=== PATIENT | male | born 1950 | race Caucasian/White ===

== ENCOUNTER → 2018-02-18 | Outpatient (CLI) | payer OTHER ==
[~2018-02-18] MED LIST: AMLO2.5T2 PO; AMT24 PO; ASCA500 PO; BACLOFEN PO; CETI10TA84 PO; CHOL4POW6 PO; CLTP PO; CRAN1CAP14 PO; CYM/60 PO; DOCUENE; DONE10TA12 PO; DOXY100C76 PO; DTR5 PO; FURO20TA PO; GABA-113 PO; LIDO5DIS10 TOP; METO25TA56 PO; NYST100098 TOP; OXYC-59 PO; OXYC1TAB3 PO; PRAV20TA PO; WARF4TAB PO
--- NOTE | 2018-02-18 11:39 | DIAGNOSTIC IMAGING REPORT ---
(RENAL)RETROPERITON COMP CLINICAL HISTORY: 67 years-old Male presenting with N28.89 Renal mass. TECHNIQUE: Real-time grayscale and limited color Doppler ultrasound imaging of the kidneys and bladder was performed. COMPARISON: 07/11/[address] from 01/26/2014. FINDINGS: Right kidney: Normal echogenicity of renal parenchyma. Right kidney measures 12.1 cm. No hydronephrosis. Multiple simple appearing renal cysts measuring up to 3 cm. Left kidney: Normal echogenicity of renal parenchyma allowing for poor visualization of the lower pole. Left kidney measures 12.2 cm. No hydronephrosis. Multiple simple appearing renal cysts measuring up to 2.1 cm. Poorly visualized suspected cyst at the lower pole. Bladder: A suprapubic catheter decompresses the urinary bladder. Other: None. IMPRESSION: 1. Multiple simple appearing renal cysts. No hydronephrosis. Poor visualization of the lower pole left kidney, which likely also demonstrates a renal cyst. No sonographic evidence of a solid renal mass. Electronically signed by: Loyd Porter M.D. 02/18/2018 11:38 AM Dictated Date/Time: 02/18/2018 11:36 AM
== END | disposition home or self-care (01) ==
LOC: C.ULTR 10:49
PROVIDERS: ATTEND Urology
DX: N28.89 Other specified disorders of kidney and ureter (principal); N28.1 Cyst of kidney, acquired

== ENCOUNTER 2018-07-07 12:06 | Emergency (ER) | payer OTHER ==
[~2018-07-07] VITALS: Ht 172.7 cm; Wt 86.4 kg
[2018-07-07 12:06] VITALS: TEMP 36.9; Ht 172.7 cm; Wt 86.4 kg
[~2018-07-07 12:06] MED LIST changes: -OXYC-59 PO; +OXYC-90 PO; +OXYC10TA2 PO; -OXYC1TAB3 PO
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
[2018-07-07 13:46] LABS: BASO % 0.2 %; BASO ABS # 0.03 K/uL (0-0.2); EOS % 4.3 %; EOS ABS # 0.71 K/uL (0-0.5); HEMATOCRIT 50.3 % (42-52); HEMOGLOBIN 17.4 g/dL (14.0-18.0); IG# 0.05 K/uL (0.00-0.02); LYMPH % 11.6 %; LYMPH ABS # 1.91 K/uL (1.2-3.4); MEAN CELL VOLUME 86.1 fL (80-100); MEAN CORPUSCULAR HEMOGLOBIN 29.8 pg (25-34); MEAN CORPUSCULAR HGB CONC 34.6 g/dl (32-36); MEAN PLATELET VOLUME 9.4 fL (7.4-10.4); MONO % 11.6 %; MONO ABS # 1.91 K/uL (0.11-0.59); PLATELET COUNT 325 K/uL (130-400); RED CELL DISTRIBUTION WIDTH CV 16.1 % (11.5-14.5); RED CELL DISTRIBUTION WIDTH SD 51.1 fL (36.4-46.3); WHITE BLOOD COUNT 16.41 K/uL (4.8-10.8)
[2018-07-07 14:03] LABS: INR 3.1 (0.9-1.1)
[2018-07-07 14:06] LABS: PTT PATIENT 57.6 SECONDS (21.0-31.0)
[2018-07-07 14:07] LABS: ALBUMIN 2.7 gm/dl (3.4-5.0); CALCIUM 9.4 mg/dl (8.5-10.1); CREATININE 0.54 mg/dl (0.60-1.40); POTASSIUM 3.8 mmol/L (3.5-5.1)
--- NOTE | 2018-07-07 14:21 | DIAGNOSTIC IMAGING REPORT ---
CT OF THE ABDOMEN AND PELVIS WITHOUT CONTRAST, STONE PROTOCOL CLINICAL HISTORY: Fall. Evaluate for bladder trauma. COMPARISON STUDY: CT of the abdomen and pelvis January 26, 2014 and renal ultrasound February 18, 2018. TECHNIQUE: Helical axial images of the abdomen and pelvis were obtained without IV or oral contrast according to renal stone protocol. A dose lowering technique was utilized adhering to the principles of ALARA. FINDINGS: Unenhanced images of the liver, spleen, adrenal glands and pancreas are unremarkable with exception of left adrenal nodularity which is unchanged and CT of January 26, 2014. This is benign. There is no biliary ductal dilatation status post cholecystectomy. There is no peripancreatic infiltration. A few water attenuation renal lesions are suboptimally assessed on this unenhanced exam but favor cysts. There is moderate bilateral hydronephrosis and mild dilatation of both ureters. The bladder is mildly distended. Suprapubic catheter is in place. Balloon is likely located within the prostatic portion of the urethra. The catheter could be withdrawn 3 cm. There is mild distention of the bladder. There is mild infiltration adjacent to the bladder as well as the prostate as well as both kidneys. Chronic pelvic deformity is noted with old fractures. No acute pelvic fracture is identified. Extensive plaque of the aortoiliac system is noted. Prominent bilateral pelvic sidewall lymph nodes are unchanged in CT of January 26, 2014. No large hematoma is identified on this exam. Sensitivity for detection of urothelial lesions is diminished on this unenhanced exam. There are old thoracic and lumbar spine compression fractures. These are unchanged. Extensive muscular atrophy is noted. IMPRESSION: 1. Suprapubic catheter in place with balloon likely within the prostatic portion of the urethra. The catheter could be withdrawn 3 cm. 2. Moderate bilateral hydronephrosis and mild bilateral hydroureter which is nonspecific but may be related to bladder distention. 3. Moderate infiltration adjacent to the kidneys, bladder and prostate which could be correlated with urinalysis. Similar findings were shown on prior study and this may be chronic. A post traumatic etiology could appear similar although is considered less likely. 4. Chronic deformity of the pelvis with old fractures. No acute pelvic fracture. Electronically signed by: Truman Hester M.D. 07/07/2018 2:20 PM Dictated Date/Time: 07/07/2018 2:02 PM
[2018-07-07] MEDS ORDERED: ASCO1CAP3 PO (15:14)
[2018-07-07] MEDS ORDERED: CALC600T9 PO (15:14)
[2018-07-07] MEDS ORDERED: LIDO1PAD2 TOP (15:14)
[2018-07-07] MEDS ORDERED: CHOL4POW2 (15:14)
[2018-07-07] MEDS ORDERED: ACETAMINOPHEN 325 MG TAB PO STA (16:23)
[2018-07-07] MEDS ORDERED: CEFTRIAXONE SOD INJ 1 GM ADDVIAL IV STA (18:00)
[2018-07-07] MEDS ORDERED: CIPROFLOXACIN 500MG HOME PACK PO ONE (18:00)
[2018-07-07] MEDS ORDERED: CEPH500C PO (18:02)
[2018-07-07 19:49] VITALS: BP 146/95; PULSE 85; O2SAT 96
--- NOTE | 2018-07-09 12:55 | Pharmacy Progress Note ---
ED Pharmacist Culture FollowUp Date of Service: Jul 09, 2018. Patient was sent home with a prescription for Cephalexin 500mg PO TID x 7 days, which should cover the e coli growing from the patient's URINE culture.
== END 2018-07-07 19:51 | disposition home or self-care (01) ==
LOC: EDBD 12:06 → C.EDA 12:07
DX: T83.098A Other mechanical complication of other urinary catheter, initial encounter (principal); R31.9 Hematuria, unspecified; Y84.6 Urinary catheterization as the cause of abnormal reaction of the patient, or of later complication, without mention of misadventure at the time of the procedure; N39.0 Urinary tract infection, site not specified; G82.20 Paraplegia, unspecified; Z79.899 Other long term (current) drug therapy; I10 Essential (primary) hypertension; I25.10 Atherosclerotic heart disease of native coronary artery without angina pectoris; E78.5 Hyperlipidemia, unspecified; Z88.8 Allergy status to other drugs, medicaments and biological substances

== ENCOUNTER 2019-03-15 13:16 | Inpatient (IN) ==
[2019-03-15] MEDS ORDERED: VANCOMYCIN CONSULT ACTIVE PRN ×2 (18:24→18:25)
[2019-03-15] MEDS ORDERED: PIPERACILL/TAZOBAC CONSULT ACTIVE PRN (18:24)
[2019-03-15] MEDS ORDERED: PATIENT S HEIGHT NEEDED SCH (18:30)
[2019-03-15] MEDS ORDERED: PIPERACILLIN/TAZOBACTAM 3.375 GM in DEXTROSE 5% 100 ML IV ONE (18:45)
[2019-03-15] MEDS ORDERED: VANCOMYCIN HCL 1,250 MG in SODIUM CHLORIDE 0.9% 250 ML IV ONE (18:45)
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
[2019-03-15] MEDS ORDERED: SODIUM CHLORIDE 0.9% 1000ML 1,000 ML IV SCH (19:15)
[2019-03-15 20:16] LABS: INR 1.4 (0.9-1.1); Partial Thromboplastin Ratio 0.9; Partial Thromboplastin Time 24.9 Seconds (21.0-31.0)
[2019-03-15] MEDS: ENOXAPARIN 80 MG/0.8 ML SYR SQ SCH (20:17)
[2019-03-15] MEDS: WARFARIN SOD 4 MG TAB PO SCH (20:18)
[2019-03-15] MEDS: LUBIPROSTONE 8 MCG CAP PO SCH (20:19)
[2019-03-15] MEDS: BACLOFEN 20 MG TAB PO SCH (20:21)
[2019-03-15] MEDS: CALCIUM 600MG + VIT D 400 IU TAB PO SCH (20:21)
[2019-03-15 20:22] LABS: Albumin Level 2.7 gm/dl (3.4-5.0); BUN Creatinine Ratio 36.1 (10-20); C Reactive Protein 15.3 mg/dl (0-0.29); Calcium 8.9 mg/dl (8.5-10.1); Creatinine Clr Calc Pharmacy 167.7 ml/min; Est GFR (Non-African American) 117.4; Potassium 3.2 mmol/L (3.5-5.1)
[2019-03-15] MEDS: GABAPENTIN 300 MG CAP PO SCH (20:22)
[2019-03-15 20:25] LABS: Albumin Globulin Ratio 0.6 (0.9-2); Bilirubin,Total 0.7 mg/dl (0.2-1); Globulin 4.6 gm/dl (2.5-4.0); Total Protein 7.3 gm/dl (6.4-8.2)
[2019-03-15] MEDS ORDERED: POTASSIUM CHLORIDE 20 MEQ TABCR PO ONE (20:33)
[2019-03-15] MEDS: METOPROLOL TARTRATE 25 MG TAB PO SCH (20:35)
[2019-03-15 20:38] LABS: Basophils # (auto) 0.02 K/uL (0-0.2); Basophils % (auto) 0.1 %; Eosinophils # (auto) 0.45 K/uL (0-0.5); Eosinophils % (auto) 3.1 %; Hematocrit (blood only) 43.9 % (42-52); Hemoglobin 14.9 g/dL (14.0-18.0); Immature Granulocytes # (auto) 0.06 K/uL (0.00-0.02); Immature Granulocytes % (auto) 0.4 %; Lymphocytes # (auto) 1.37 K/uL (1.2-3.4); Lymphocytes % (auto) 9.5 %; Mean Corpuscular Volume 84.6 fL (80-100); Mean Platelet Volume 9.1 fL (7.4-10.4); Monocytes # (auto) 1.66 K/uL (0.11-0.59); Monocytes % (auto) 11.6 %; Neutrophils # (auto) 10.81 K/uL (1.4-6.5); Neutrophils % (auto) 75.3 %; Platelet Count 326 K/uL (130-400); RDW Coefficient of Variation 16.2 % (11.5-14.5); RDW Standard Deviation 50.2 fL (36.4-46.3); Red Blood Count 5.19 M/uL (4.7-6.1); White Blood Count 14.37 K/uL (4.8-10.8)
[2019-03-15 20:40] LABS: Mean Corpuscular Hgb Conc 33.9 g/dL (32-36)
--- NOTE | 2019-03-15 20:42 | Pharmacy Report ---
Pharmacy Abx Dose Short Note - Date of Service March 15, 2019 - Assessment & Plan Assessment 68 year old M ORDERED VANC/Zosyn for treatment of SSTI * Pt previously receiving Vanc/Zosyn or Vanc/Cubicin at [facility] &/or [facility]. Labs from [facility] 03/15/19: INR=1.17 (last dose enox 80mg sq q12h was 03/14/19 2256) Scr 0.5 * Pt received last dose of Vanc _?_mg IV 03/15/19 0500ish * Vanc was d/c and switched to dapto 6mg/kg (484mg) IV q24 hrs with 1st dose 03/15 @ 1241. * Zosyn 4.5g IV q 6 hours with last dose at [facility] 1345 Plan Vancomycin: discussed plan of care with Faith. Since dapto on board x 24 hours, will plan to restart Vanc 03/16 late morning. Piperacillin/Tazobactam Extended Infusion: 3.375g IV bolus, then 4.5g IV q 8 hrs for est CrCL > 20mL/min (4-6 hrs after load). Pharmacy will continue to follow and will adjust dose/frequency as necessary. Thank you.
[2019-03-15] MEDS: OXYCODONE HCL IR 5 MG TAB (IMMEDIATE RELEASE) PO PRN (21:55)
[2019-03-15 23:23] LABS: Appearance Urine Cloudy (Clear); Bacteria Urine Automated Negative (Negative); Bilirubin Urine Negative (Negative); Blood Urine 3+ (Negative); Color Urine Dark Yellow; Epithelial Cell Urine Auto 0-5 /lpf (0-5); Glucose Urine UA Negative (Negative); Ketones Urine Trace (Negative); Leukocyte Esterase Urine 2+ (Negative); Nitrite Urine Negative (Negative); Protein Urine Trace (Negative); Specific Gravity Urine 1.031 (1.000-1.030); Urobilinogen Urine Negative (Negative); WBC Urine Automated >30 /hpf (0-5)
[2019-03-15 23:35] LABS: Cast Urine Automated 0 /lpf (0-5)
[2019-03-15] MEDS: PIPERACILLIN/TAZOBACTAM 4.5 GM in DEXTROSE 5% 100 ML IV SCH (23:49)
[2019-03-16] MEDS: ACETAMINOPHEN 325 MG TAB PO PRN ×2 (01:40→18:09)
[2019-03-16] MEDS: OXYCODONE HCL IR 5 MG TAB (IMMEDIATE RELEASE) PO PRN ×4 (03:30→22:02)
[2019-03-16 05:46] LABS: Basophils # (auto) 0.01 K/uL (0-0.2); Basophils % (auto) 0.1 %; Eosinophils # (auto) 0.62 K/uL (0-0.5); Eosinophils % (auto) 4.5 %; Hematocrit (blood only) 37.9 % (42-52); Hemoglobin 12.8 g/dL (14.0-18.0); Immature Granulocytes # (auto) 0.04 K/uL (0.00-0.02); Immature Granulocytes % (auto) 0.3 %; Lymphocytes # (auto) 1.65 K/uL (1.2-3.4); Mean Corpuscular Hgb Conc 33.8 g/dL (32-36); Mean Corpuscular Volume 82.8 fL (80-100); Mean Platelet Volume 8.8 fL (7.4-10.4); Monocytes # (auto) 1.52 K/uL (0.11-0.59); Monocytes % (auto) 11.1 %; Neutrophils # (auto) 9.91 K/uL (1.4-6.5); Platelet Count 314 K/uL (130-400); RDW Standard Deviation 48.5 fL (36.4-46.3); Red Blood Count 4.58 M/uL (4.7-6.1); White Blood Count 13.75 K/uL (4.8-10.8)
[2019-03-16 05:56] LABS: INR 1.8 (0.9-1.1); Prothrombin Time 17.7 Seconds (9.0-12.0)
[2019-03-16 06:14] LABS: BUN Creatinine Ratio 45.4 (10-20); Blood Urea Nitrogen 13 mg/dl (7-18); Calcium 8.4 mg/dl (8.5-10.1); Carbon Dioxide 26 mmol/L (21-32); Chloride 106 mmol/L (98-107); Creatinine Clr Calc Pharmacy 254.4 ml/min; Est GFR (African American) > 150.0; Est GFR (Non-African American) 139.3; Glucose 127 mg/dl (70-99); Potassium 3.3 mmol/L (3.5-5.1); Sodium 134 mmol/L (136-145)
[2019-03-16] MEDS: ENOXAPARIN 80 MG/0.8 ML SYR SQ SCH ×2 (06:14→19:57)
--- NOTE | 2019-03-16 07:26 | Infectious Disease Consult ---
Date of Consultation March 16, 2019 Assessment & Plan (1) Wound infection: continue abx for now, await results from cultures at [facility] as well at [facility]. will follow. History of Present Illness Attending Physician: April Wright pt transferred from [facility] due to infected wounds. Per chart was being treated at local wound center. 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 pt is lethargic, does not provide history, obtained from chart. wound and blood cultures reportedly obtained at [facility] prior to transfer. repeat wound culture pending. Placed on Vanco and zosyn in ER, tolerating well. afebrile. wbc 16. Had MRI at [facility] with ? osteomyelitis. Allergies Allergy/AdvReac Type Severity Reaction Status Date / Time JAYMIE Inhibitors Allergy Severe angioedema Verified 07/07/18 15:03 Bactrim Allergy Severe URTICARIA Verified 07/07/18 15:03 WITH ANGIOEDEMA TONGUE, LIPS Home Medications Home Medications Medication Instructions Recorded Confirmed Type Lactobacillus acidoph-L.bulgar 2 tab PO DAILY 03/15/19 03/15/19 History [Lactinex] amlodipine 2.5 mg PO DAILY 03/15/19 03/15/19 History ascorbic acid (vitamin C) [Vitamin 500 mg PO DAILY 03/15/19 03/15/19 History C] baclofen 20 mg PO TID 03/15/19 03/15/19 History calcium carbonate-vitamin D3 3 cap PO DAILY 03/15/19 03/15/19 History [Calcium 600 + D(3)] cholestyramine (with sugar) 4 g PO BID PRN 03/15/19 03/15/19 History cranberry conc-ascorbic acid 2 cap PO DAILY 03/15/19 03/15/19 History [Cranberry Plus Vitamin C] doxycycline hyclate 100 mg PO DAILY 03/15/19 03/15/19 History duloxetine 60 mg PO DAILY 03/15/19 03/15/19 History enoxaparin [Lovenox] 80 mg SUBCUT Q12H 03/15/19 03/15/19 History furosemide [Lasix] 20 mg PO DAILY 03/15/19 03/15/19 History gabapentin 2 cap PO QID 03/15/19 03/15/19 History lidocaine [Lidoderm] 1 patch TOPICAL DAILY 03/15/19 03/15/19 History lubiprostone [Amitiza] 24 mcg PO BID 03/15/19 03/15/19 History methenamine mandelate 1 g PO DAILY 03/15/19 03/15/19 History metoprolol tartrate 12.5 mg PO BID 03/15/19 03/15/19 History nystatin 1 applic TOPICAL TID 03/15/19 03/15/19 History oxycodone 10 mg PO QID PRN 03/15/19 03/15/19 History pravastatin 20 mg PO DAILY 03/15/19 03/15/19 History sennosides-docusate sodium [Senna 2 tab PO DAILY 03/15/19 03/15/19 History with Docusate Sodium] warfarin 1 tab PO UD 03/15/19 03/15/19 History Patient History Medical History Subdural hemorrhage (Resolved Unknown) Delirium (Resolved Unknown) Syringomyelia (Chronic Unknown) Suprapubic cystostomy (Chronic Unknown) Paraplegia (Chronic Unknown) "T8 " On 04/02/12 12:42 Rene Clark wrote "T8 " On 04/02/12 12:42 Rene Clark wrote "T8 " Recurrent urinary tract infection (Chronic Unknown) Renal mass (Chronic Unknown) Dyslipidemia (Chronic Unknown) Clostridium difficile infection (Resolved 04/04/13) "2008 " On 04/02/12 12:42 Rene Clark wrote "2008 " On 04/02/12 12:42 Rene Clark wrote "2008 " On 04/02/12 12:39 Rene Clark wrote "2008 " Social History Preferred Language: [place] Islander Communication Ability: Effective Beliefs That Will Affect Care: None Current Living Situation: Spouse Feels Safe at Home: Yes Safety Concerns: Feels Safe At This Time Smoking Status: Current every day smoker Tobacco Type: pipe Do You Dip or Chew Tobacco: No Smoking End Date: 6 months ago. Second Hand Exposure: No Tobacco Cessation Education Requested by Patient: No Hx Alcohol Use: No Hx Substance Use: No Review of Systems Review of Systems: Unobtainable due to cognitive status Physical Exam Constitutional: + thin and + altered mental status Eyes: unable to examine, does not open eyes on my exam ENMT: external ear and nose normal, oropharynx normal Neck: normal visual inspection Respiratory: normal respiratory effort, lungs clear to auscultation Auscultation: + diminished lung sounds Cardiovascular: RRR, no murmur, no edema Gastrointestinal (Abdomen): Inspection/Auscultation: abdomen normal to inspection Musculoskeletal: Head/Neck/Chest: normocephalic Skin: no rashes, warm and dry multiple lower extremity wounds, dressing intact, no surrounding erythema warmth right lateral knee wound Psychiatric: lethargic, non verbal on my exam Results & Data Vital Signs (Past 12 Hours) Vital Signs Temp Pulse Pulse Resp BP Pulse Ox 03/16/19 07:02 36.6 C 61 16 138/74 95 03/15/19 23:28 36.7 C 76 18 123/67 95 03/15/19 20:33 77 139/70 97 03/15/19 20:16 37.0 C 03/15/19 19:43 36.8 C Laboratory Results Microbiology 03/15/19 22:25 Leg,Right Gram Stain - Final
[2019-03-16] MEDS: PIPERACILLIN/TAZOBACTAM 4.5 GM in DEXTROSE 5% 100 ML IV SCH ×3 (09:01→23:37)
[2019-03-16] MEDS: ASCORBIC ACID 500 MG TAB PO SCH (09:03)
[2019-03-16] MEDS: METOPROLOL TARTRATE 25 MG TAB PO SCH ×2 (09:03→20:08)
[2019-03-16] MEDS: AMLODIPINE BESYLATE 5 MG TAB PO SCH (09:04)
[2019-03-16] MEDS: DOCUSATE SODIUM/SENNA 50/8.6MG TAB PO SCH (09:05)
[2019-03-16] MEDS: LUBIPROSTONE 8 MCG CAP PO SCH ×2 (09:07→20:11)
[2019-03-16] MEDS: GABAPENTIN 300 MG CAP PO SCH ×4 (09:07→20:08)
[2019-03-16] MEDS: PRAVASTATIN SOD 20 MG TAB PO SCH (09:08)
[2019-03-16] MEDS: LACTOBACILLUS ACIDOPHILUS (FLORANEX) TAB PO SCH (09:08)
[2019-03-16] MEDS: BACLOFEN 20 MG TAB PO SCH ×3 (09:08→20:12)
[2019-03-16] MEDS: DULOXETINE HCL 60 MG CAP PO SCH (09:08)
[2019-03-16] MEDS: LIDOCAINE 5% 1 PATCH TD SCH (09:09)
[2019-03-16] MEDS: CALCIUM 600MG + VIT D 400 IU TAB PO SCH ×3 (09:10→20:11)
[2019-03-16] MEDS ORDERED: VANCOMYCIN HCL 1,750 MG in SODIUM CHLORIDE 0.9% 500 ML IV ONE (10:00)
--- NOTE | 2019-03-16 10:32 | Hospitalist Progress Note ---
Date of Service March 16, 2019 Assessment & Plan (1) Wound infection: Patient is a 68 y/o paraplegic x 40 years with chronic right knee, lateral aspect wounds, right buttock wound for which she follows up with wound care clinic on a weekly basis. Recently he was at [facility] post teeth extraction for Lovenox/Coumadin bridging. Went for his routine follow-up visit at wound care clinic last Sunday where he was noted to have purulent drainage/foul- smelling wounds and was sent to ED, [facility] hopper. Transferred to our hospital for ID opinion. RIGHT KNEE (LATERAL SIDE) WOUND INFECTION - RIGHT BUTTOCK PRESSURE ULCER WITH CELLULITIS - SUPRA PUBIC SITE CELLULITIS involving groin/penis- R/o Osteomyelitis -[facility] Work up- 03/15- WBC 16k, ESR,, CRP Elevated (Unable to find results), Creatinine- 0.5, INR 1.17, Blood cx x 2- preliminary negative, Wound cx b/l collected. MRI w/o contrast- Unable to r/o OM, Soft tissue infection along outer margin of knee with extension to involve adjacent with soft tissues around bony elements of knee, chronic unhealed fracture at the distal femur, chronic ACL tear, maceration of menisci, knee degenerative changes, x-patrice healed chronic distal femur fracture -Continue with IV Vancomycin, Zosyn- Day 3 (Was started on antibiotics on 03/14/19 at [facility]) -Wound care ordered (Follows up at wound care clinic). -ID consulted. Appreciate inputs. D/w ID -F/up Blood cx, Wound cx from [facility] . Follow up wound cx, blood cultures here. UTI As per [facility] records Chronic supra pubic catheter + for neurogenic bladder Surrounding area- Cellulitis + with some drainage -Will order UA, Urine cx here -On Antibiotics as above -Need to change supra pubic catheter- Consult urology to change catheter HX OF DVT/IMMOBILIZATION -Was at [facility] prior to admission for lovenox/coumadin bridging post 4 teeth extraction procedure. -Continue with lovenox/coumadin bridging -INR monitoring, Coumadin to be continued HX OF PARAPLEGIA HX OF NEUROGENIC BLADDER -Chronic suprapubic catheter -Bed ridden x 4 decades HTN Stable Continue with home meds- lisinopril. Hold lasix COPD with no exacerbation -Nebs PRN HX OF SYRINGOMYELIACTOMY HX OF PRIOR MRSA/VRE HX OF CAD -Continue with home meds DVT PROPHYLAXIS Lovenox/Coumadin bridging FULL CODE as per DISPOSITION Medical mx in progress Updated by bedside. Answered all her questions Subjective Patient is feeling much better today. More awake, alert. Denies any complaints. No fever since admission. No nausea, vomiting, pain. Saturating well on room air Physical Exam Constitutional: WD/WN, vitals as above + ill appearing Eyes: PERRL, conjunctivae normal, anicteric sclerae Respiratory: normal respiratory effort, lungs clear to auscultation Cardiovascular: RRR, no murmur, no edema Gastrointestinal (Abdomen): normal bowel sounds, soft, nontender, no hepatosplenomegaly Skin: + ulcer (Right knee- lateral aspect- approx 3 x 3 cm,exposed tendons, discharge ) RIGHT KNEE (LATERAL SIDE)- Ulcer # 1- Approx 3 x 3 cm exposing tendons, bones, no surrounding erythema Ulcer # 2- Smaller sized with no surrounding erythema RIGHT BUTTOCK ULCER- appr 1 x 2 cm, with surrounding erythema SUPRA PUBIC site- mild drainage, surrounding erythema (area marked) involving penis Neurologic: Motor/Sensory: + abnormal movement (PARAPLEGIA + ) Genitourinary: PENILE EDEMA Results & Data Vital Signs (Past 12 Hours) Vital Signs Temp Pulse Resp BP Pulse Ox 03/16/19 07:02 36.6 C 61 16 138/74 95 03/15/19 23:28 36.7 C 76 18 123/67 95
[2019-03-16] MEDS ORDERED: POTASSIUM CHLORIDE 20 MEQ TABCR PO STA (11:06)
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
[2019-03-16] MEDS: COLLAGENASE OINT 30 GM TUBE EXT SCH ×2 (11:53→20:14)
[2019-03-16] MEDS ORDERED: GADOBUTROL 65ML VIAL IV PRN (13:36)
--- NOTE | 2019-03-16 14:13 | Magnetic Resonance Report ---
MR knee RT wo/w con CLINICAL HISTORY: 68 years-old Male with wound right lateral knee. Chronic wound of the lateral righ t knee and patient with history of paraplegia and nonweightbearing status. COMPARISON: None available TECHNIQUE: Multiplanar, multisequence MRI of the right knee was performed both with and without the u se of 8 mL Gadavist. FINDINGS: Motion degraded exam. MENISCI: Extensive multifocal tearing and irregularity noted about the medial meniscus involving the body, anterior and posterior horns. Multifocal complex tearing is also noted about the lateral menisc us, anterior and posterior horn and meniscal body. Large radial tear involves the anterior horn. Mode rate extrusion of the lateral meniscus into the adjacent meniscal gutter. CRUCIATE LIGAMENTS: PCL appears intact. Likely chronic full-thickness tear of the ACL. COLLATERAL LIGAMENTS: The popliteus tendon, biceps femoris tendon, fibular collateral ligament and il iotibial band are intact. The superficial and deep components of the medial collateral ligament are intact. EXTENSOR MECHANISM: The quadriceps and patellar tendons are intact. Moderate thickening of the patell ar tendon may be postsurgical and/or reflect tendinosis. The medial and lateral patellar retinacula a re intact. KNEE JOINT: Large joint effusion. Moderate tricompartmental osteoarthritis with multifocal chondromal acia. There are several loose bodies noted about the medial compartment and intercondylar distributio n measuring up to 8 mm. Synovial thickening with increased enhancement compatible with synovitis. BONE MARROW: There is a peripherally corticated chronic appearing oblique fracture about the distal m etaphyseal aspect of the medial femoral condyle with extension to the intercondylar notch. Fracture i s displaced medially 11 mm and foreshortened 10 mm. Subcortical cystic change and edema is noted abou t the medial and lateral epicondyles to lesser extent within the lateral tibial plateau, likely on a degenerative basis. SOFT TISSUES: Moderate subcutaneous and deep tissue edema about the knee. Trace Oneill's cyst. Diffuse atrophy of the musculature. Soft tissue defect about the lateral knee is noted measuring up to appro ximately 2.5 x 0.6 x 2.2 cm at the level of the lateral femoral condyle. There is mild adjacent bony erosive changes noted deep to the skin ulcer about the posterior aspect of the lateral femoral condyl e nicely seen on image 22 series 8 and series 9 with decreased T1 signal and increased T2 signal. The re is increased enhancement within this distribution about the bone marrow and adjacent soft tissues. There is moderate edema and enhancement about the proximal anterior compartment of the lower leg whi ch is partially imaged. IMPRESSION: 1. Moderate cellulitis with soft tissue ulcer about the lateral knee at the level of the lateral femo ral condyle. Adjacent bony erosive changes about the posterior aspect of the lateral femoral condyle are suggestive of associated acute osteomyelitis. 2. Moderate edema and enhancement about the imaged anterior compartment of the lower leg compatible w ith myositis. 3. Large joint effusion with synovitis. 4. Remote appearing displaced distal femoral fracture. 5. Additional findings as above. The above report was generated using voice recognition software. It may contain grammatical, syntax o r spelling errors. Electronically signed by: Dung Espinosa M.D. 03/16/2019 2:11 PM
--- NOTE | 2019-03-16 15:44 | Pharmacy Report ---
Pharmacy Abx Initial Consult - Date of Service March 16, 2019 - Pharmacy Dosing Scope Date of Consult: 03/15/19 Consultation requested by: Faith Willis PA-C Pharmacy is consulted to initiate Vancomycin IV dosing therapy, order appropriate labs and adjust drug dose/frequency. - Subjective The patient is a 68 year old M admitted on 03/15/19 17:35. - Objective Height: 5 ft 7.72 in Weight: 82.8 kg Vital Signs (Past 12hrs): Vital Signs Temp Pulse Resp BP Pulse Ox 03/16/19 15:00 36.6 C 61 20 145/65 H 95 03/16/19 07:02 36.6 C 61 16 138/74 95 Lab Results (24hrs): Laboratory Tests (24 Hours) 03/16/19 03/16/19 03/15/19 05:23 05:23 20:26 WBC 13.75 H 14.37 H Neut # (Auto) 9.91 H 10.81 H ESR Creatinine 0.29 L Est Cr Clr Drug Dosing 254.4 C-Reactive Protein 03/15/19 03/15/19 03/15/19 20:26 19:37 19:37 WBC Cancelled Neut # (Auto) Cancelled ESR > 90 H Creatinine 0.44 L Est Cr Clr Drug Dosing 167.7 C-Reactive Protein 15.30 H Micro Results: 03/15/19 22:25 Gram Stain - Final Leg,Right 03/15/19 19:01 Blood Culture - Pending Blood 03/15/19 19:37 Blood Culture - Pending Blood - Risk Factors for Resistance * Resident in a retirement or extended-care facility * History of infection with a multidrug-resistant organism: MRSA/VRE - Assessment & Plan Assessment Patient is a 68 year old paraplegic M for 40 yrs. He has had R knee wounds ch ronically and currently with R buttock wound and was following up with wound clinic. He was admitted to [facility] for worsening of skin infection, then transferred here for ID evaluation. At [facility] he was on Daptomycin IV 6 mg/kg Q24h. Last dose at 1241 on 03/15/19. Prior to Daptomycin, he was Vancomycin- last dose of this around 0500 AM on 03/15/19 Pharmacy is consulted for Vanco and Zosyn dosing. Plan Vancomycin for treatment of Osteomyelitis. Vancomycin started this AM almost 24 hrs after Daptomycin dose given yesterday at [facility]. Vancomycin IV * Estimated PK Parameters: Vd 0.7 L/kg, Charles 0.073 hr-1, t1/2 9.5 hr * Loading dose: 1750 mg (21 mg/kg) x 1 dose today at 1000. * Maintenance dose: 1250 mg IV (15 mg/kg) every 12 hours * Goal trough level for Osteomyelitis: 15 to 20 mcg/mL * Trough Vanco level ordered for 03/18/19 @ 1000 (after 3 maintenance doses). Piperacillin/tazobactam * Pt was on Zosyn 4.5 gm IV q6h at [facility]. * On admission here, 3.375 g bolus administered over 30 minutes, then 4.5 g IV extended infusion every 8 hours for CrCl greater than 20 mL/min started. * Aggressive dosing selected due to critically ill status. Pharmacy will continue to follow and will adjust dose/frequency as necessary. Thank you.
[2019-03-16] MEDS: WARFARIN SOD 4 MG TAB PO SCH (15:53)
[2019-03-16] MEDS: VANCOMYCIN HCL 1,250 MG in SODIUM CHLORIDE 0.9% 250 ML IV SCH (22:03)
[2019-03-17] MEDS: ACETAMINOPHEN 325 MG TAB PO PRN ×2 (00:30→14:45)
[2019-03-17] MEDS: OXYCODONE HCL IR 5 MG TAB (IMMEDIATE RELEASE) PO PRN ×4 (03:56→20:33)
[2019-03-17] MEDS: ENOXAPARIN 80 MG/0.8 ML SYR SQ SCH (06:10)
[2019-03-17 06:44] LABS: Hematocrit (blood only) 35.8 % (42-52); Hemoglobin 11.9 g/dL (14.0-18.0); Mean Corpuscular Hgb Conc 33.2 g/dL (32-36); Mean Corpuscular Volume 83.8 fL (80-100); Mean Platelet Volume 8.9 fL (7.4-10.4); Platelet Count 302 K/uL (130-400); RDW Coefficient of Variation 16.3 % (11.5-14.5); RDW Standard Deviation 49.6 fL (36.4-46.3); Red Blood Count 4.27 M/uL (4.7-6.1); White Blood Count 8.59 K/uL (4.8-10.8)
[2019-03-17 06:52] LABS: INR 2.7 (0.9-1.1); Prothrombin Time 26.1 Seconds (9.0-12.0)
[2019-03-17 07:22] LABS: BUN Creatinine Ratio 46.8 (10-20); Blood Urea Nitrogen 16 mg/dl (7-18); Calcium 8.5 mg/dl (8.5-10.1); Carbon Dioxide 25 mmol/L (21-32); Chloride 107 mmol/L (98-107); Est GFR (African American) > 150.0; Est GFR (Non-African American) 130.5; Glucose 89 mg/dl (70-99); Potassium 3.7 mmol/L (3.5-5.1); Sodium 137 mmol/L (136-145)
[2019-03-17] MEDS: PIPERACILLIN/TAZOBACTAM 4.5 GM in DEXTROSE 5% 100 ML IV SCH ×3 (09:18→23:42)
[2019-03-17] MEDS: VANCOMYCIN HCL 1,250 MG in SODIUM CHLORIDE 0.9% 250 ML IV SCH ×2 (09:18→22:10)
[2019-03-17] MEDS: LACTOBACILLUS ACIDOPHILUS (FLORANEX) TAB PO SCH (09:25)
[2019-03-17] MEDS: AMLODIPINE BESYLATE 5 MG TAB PO SCH (09:25)
[2019-03-17] MEDS: DULOXETINE HCL 60 MG CAP PO SCH (09:25)
[2019-03-17] MEDS: GABAPENTIN 300 MG CAP PO SCH ×4 (09:25→20:27)
[2019-03-17] MEDS: METOPROLOL TARTRATE 25 MG TAB PO SCH ×2 (09:26→20:25)
[2019-03-17] MEDS: DOCUSATE SODIUM/SENNA 50/8.6MG TAB PO SCH (09:26)
[2019-03-17] MEDS: LIDOCAINE 5% 1 PATCH TD SCH (09:27)
[2019-03-17] MEDS: PRAVASTATIN SOD 20 MG TAB PO SCH (09:28)
[2019-03-17] MEDS: LUBIPROSTONE 8 MCG CAP PO SCH ×2 (09:28→20:24)
[2019-03-17] MEDS: CALCIUM 600MG + VIT D 400 IU TAB PO SCH ×3 (09:29→20:26)
[2019-03-17] MEDS: BACLOFEN 20 MG TAB PO SCH ×3 (09:29→20:25)
[2019-03-17] MEDS: ASCORBIC ACID 500 MG TAB PO SCH (09:29)
--- NOTE | 2019-03-17 10:51 | Infectious Disease Progress Nt ---
Date of Service March 17, 2019 Assessment & Plan (1) Wound infection: continue abx, MRI findings noted, ESR >90, CRP 15. suggest ortho eval, doubt abx alone will be curative with large effusion and degree of involvement. Subjective pt seen in followup, MRI done yesterday, acute osteo noted, cellulitis right knee with large joint effusion. wound culture obtained upon admission growing hall sensitive Serriatia. wbc 8.5. remains on vanco and zosyn. urology eval obtained, has suprapubic cath, urine culture with yeast, unclear significance if pt with prolonged indwelling cath. blood culture negative to date. pt remains lethargic, no pain, no f/c. Review of Systems Review of Systems: All systems reviewed & are unremarkable except as noted in HPI & below Physical Exam Constitutional: + thin and + altered mental status ENMT: external ear and nose normal, oropharynx normal Neck: normal visual inspection Respiratory: normal respiratory effort, lungs clear to auscultation Auscultation: + diminished lung sounds Cardiovascular: RRR, no murmur, no edema Gastrointestinal (Abdomen): Inspection/Auscultation: abdomen normal to inspection Musculoskeletal: Head/Neck/Chest: normocephalic Skin: no rashes, warm and dry Results & Data Vital Signs (Past 12 Hours) Vital Signs Temp Pulse Pulse Resp BP Pulse Ox 03/17/19 08:00 36.7 C 77 20 154/76 H 95 03/16/19 23:35 36.9 C 71 18 110/67 95 Laboratory Results Microbiology 03/15/19 20:00 Urine,Suprapubic Urine Culture - Preliminary Yeast 03/15/19 19:37 Blood Blood Culture - Preliminary No growth to date. 03/15/19 19:01 Blood Blood Culture - Preliminary No growth to date. 03/15/19 22:25 Leg,Right Gram Stain - Final 03/15/19 22:25 Leg,Right Wound Culture - Preliminary Serratia marcescens
--- NOTE | 2019-03-17 11:54 | Hospitalist Progress Note ---
Date of Service March 17, 2019 Assessment & Plan (1) Osteomyelitis: (2) Wound infection: Patient is a 68 y/o paraplegic x 40 years with chronic right knee, lateral aspect wounds, right buttock wound for which she follows up with wound care clinic on a weekly basis. Recently he was at [facility] post teeth extraction for Lovenox/Coumadin bridging. Went for his routine follow-up visit at wound care clinic last Zhao where he was noted to have purulent drainage/foul- smelling wounds and was sent to ED, [facility]. Transferred to our hospital for ID opinion. -[facility] Work up- 03/15- WBC 16k, ESR,, CRP Elevated (Unable to find results), Creatinine- 0.5, INR 1.17, Blood cx x 2- negative, Wound cx b/l collected at wound clinic as below. MRI w/o contrast- Unable to r/o OM, Soft tissue infection along outer margin of knee with extension to involve adjacent with soft tissues around bony elements of knee, chronic unhealed fracture at the distal femur, chronic ACL tear, maceration of menisci, knee degenerative changes, x-patrice healed chronic distal femur fracture RIGHT KNEE (LATERAL SIDE) WOUND INFECTION - RIGHT BUTTOCK PRESSURE ULCER WITH CELLULITIS - SUPRA PUBIC SITE CELLULITIS involving groin/penis- ACUTE OSTEOMYELITIS CONFIRMED BY MRI MRI here on 03/16 shows- Moderate edema and enhancement -ant compartment of LL - myositis Large joint effusion with synovitis + -Continue with IV Vancomycin, Zosyn- Day 4 (Was started on antibiotics on 03/14/19 at [facility]) -Wound care on board. Appreciate inputs. (Follows up at wound care clinic). -ID consulted. Appreciate inputs. -Called [facility] hosptial today for culture results - Wound cx on 03/14/19 (collected at wound clinic)- Heavy growth- Enterococcus Fecalis, Mod growth -Serratia, Heavy growth- Klebsiella pneumonia, Sensitivities will be faxed . - Wound cx on 03/15/19- Serratia , Blood cx = neg, Urine cx- yeast -For large joint effusion, will consult orthopedics UTI As per [facility] hospital records Chronic supra pubic catheter + for neurogenic bladder Surrounding area- Cellulitis + with some drainage -Urine cx at [facility]- cancelled. -Urine cx here- yeast, doubt significance with chronic indwelling supra pubic catheter -On Antibiotics as above -Need to change supra pubic catheter tube HX OF DVT/IMMOBILIZATION -Was at [facility] prior to admission for lovenox/coumadin bridging post 4 teeth extraction procedure. -On lovenox/coumadin bridging prior to admission. INR 2.7, okay to discontinue Lovenox -INR monitoring, Coumadin to be continued HX OF PARAPLEGIA HX OF NEUROGENIC BLADDER -Chronic suprapubic catheter- change tubing -Bed ridden x 4 decades HTN Stable Continue with home meds- lisinopril. Hold lasix- monitor weight COPD with no exacerbation -Nebs PRN HX OF SYRINGOMYELIACTOMY HX OF PRIOR MRSA/VRE HX OF CAD -Continue with home meds DVT PROPHYLAXIS Coumadin FULL CODE as per DISPOSITION Medical mx in progress Updated over phone. Discussed with ID about the updated culture results from [facility] Discussed case with ortho Subjective Patient c/o generalized weakness today Has been afebrile. No chills. Paraplegic + No new compliants Physical Exam Physical Exam: Constitutional WD/WN, vitals as above + ill appearing Eyes PERRL, conjunctivae normal, anicteric sclerae Respiratory normal respiratory effort, lungs clear to auscultation Cardiovascular RRR, no murmur, no edema Gastrointestinal (Abdomen) normal bowel sounds, soft, nontender, no hepatosplenomegaly Skin + ulcer (Right knee- lateral aspect- approx 3 x 3 cm,exposed tendons, discharge ) RIGHT KNEE (LATERAL SIDE)- Ulcer # 1- Approx 3 x 3 cm exposing tendons, bones, no surrounding erythema Ulcer # 2- Smaller sized with no surrounding erythema RIGHT BUTTOCK ULCER- appr 1 x 2 cm, with surrounding erythema SUPRA PUBIC site- mild drainage, surrounding erythema (area marked) involving penis Neurologic Motor/Sensory: + abnormal movement (PARAPLEGIA + ) Genitourinary PENILE EDEMA Results & Data Vital Signs (Past 12 Hours) Vital Signs Temp Pulse Resp BP Pulse Ox 03/17/19 08:00 36.7 C 77 20 154/76 H 95
[2019-03-17] MEDS: COLLAGENASE OINT 30 GM TUBE EXT SCH ×2 (12:16→20:28)
--- NOTE | 2019-03-17 15:09 | Consultation Report ---
DATE OF ADMISSION: 03/15/2019 REASON FOR CONSULTATION: Wound infection. HISTORY OF PRESENT ILLNESS: The patient is a pleasant gentleman. He is 68 years of age. He is paralyzed from the mid thoracic area down to the rest of his lower extremities. He is completely insensate and no motion whatsoever to the lower extremities. He has some chronic wounds to the lower extremities lateral aspect buttock region. He is in Wound Clinic. I am seeing in consultation for swelling in about his right knee. PAST MEDICAL HISTORY: Positive for paraplegia, neurogenic bladder, DVT, hypertension, COPD, coronary artery disease. MEDICATIONS: Reviewed. They are greater than 20. I held off on dictation. ALLERGIES: BACTRIM AND JAYMIE INHIBITORS. OBJECTIVE: GENERAL: He is alert and oriented. VITAL SIGNS: His temperature is 37.2, pulse regular. MUSCULOSKELETAL: Again, he has no sensation, no motion. EXTREMITIES: His right knee and lower extremity was evaluated. He has mild to moderate swelling in about the right knee that is not warm to touch. There is no erythema. I believe it is mostly degenerative in nature. Range of motion is satisfactory, of course gross instability. IMPRESSION: Degenerative arthritis of the right knee, not infectious, with multiple wound issues along with paraplegia. PLAN: At this point in time, I would back away from any type of surgery of course. I do not think it needs to be aspirated. I feel it is a benign appearing right lower extremity, particularly right knee. Antibiotics would be appropriate for his other wounds, but not needed for his knee issue. I will see him again tomorrow for care. Dr. Cr Lopez may see him as well.
[2019-03-17] MEDS ORDERED: WARFARIN SOD 3 MG TAB PO SCH (16:00)
--- OUTSIDE RECORDS SUMMARY | 2019-03-17 22:39 | External Medical Summary | Continuity of Care Document ---
:1950 Author Name Jane Tran, Provider Address Unavailable Unavailable , Care Team Providers Name Role Phone Marcos Perales M.D., I. Unavailable [email or web address] Hanson M.[email or web address]. Unavailable [email or web address] Real MONTES Unavailable [email or web address] Domonique Tran Unavailable [email or web address] Shanna NUNEZ Unavailable Unavailable Unavailable Unavailable Unavailable Problems Neurogenic bladder (596.54) (N31.9) Renal mass (593.9) (N28.89) Urinary tract infection (599.0) (N39.0) UTI (urinary tract infection) (599.0) (N39.0) Allergies and Adverse Reactions Sulfa Drugs (Allergy) Medications Ciprofloxacin HCl - 500 MG Oral Tablet; TAKE 1 TABLET EVERY 12 HOURS DAILY. Chelsea Hanson Start: 31-Oct-2018 Quantity: 20 Refills: 0 Ferrous Sulfate 325 MG CAPS Refills: 0 Vitamin C TABS Refills: 0 Fluconazole 100 MG Oral Tablet; TAKE 2 T ABLETS ON DAY 1 THEN TAKE 1 TABLET A DAY FOR 4 DAYS. Chelsea Youssef Start: 09-Mar-2016 Quantity: 6 Refills: 0 Donepezil HCl TABS Refills: 0 Baclofen TABS Refills: 0 Warfarin Sodium TABS Refills: 0 Pravastatin Sodium TABS Refills: 0 Lidocaine HCl OINT Refills: 0 oxyCODONE HCl TABS Refills: 0 Cymbalta CPEP Refills: 0 Gabapentin TABS Refills: 0 Lasix 20 MG Oral Tablet Refills: 0 Amitiza 24 MCG Oral Capsule Refills: 0 Metoprolol Tartrate 25 MG Oral Tablet Refills: 0 amLODIPine Besylate TABS Refills: 0 Doxycycline Monohydrate TABS Refills: 0 Fleet Enema ENEM Refills: 0 Nitrofurantoin Monohyd Macro 100 MG Oral Capsule; Take one tablet twice daily for 10 days JYOTI Noble Start: 25-Aug-2016 Quantity: 20 Refills: 0 Nystatin Powder Refills: 0 Cholestyramine PACK Refills: 0 Silver Nitrate SUSY Refills: 0 Cranberry/Vitamin C Triple St CAPS Refills: 0 Calcium-D CAPS Refills: 0 Lactinex Oral Tablet Chewable Refills: 0 DuoDerm Signal Dressing Refills: 0 Multi-Vitamin TABS Refills: 0 Silvadene 1 % External Cream Refills: 0 Doxycycline Hyclate 100 MG Oral Tablet; TAKE 1 TABLET DAILY. Chelsea Perales I. Start: 31-Aug-2015 Quantity: 90 Refills: 3 Methenamine Mandelate 1 GM Oral Tablet; Take 1 tablet daily Chelsea Perales I. Start: 31-Aug-2015 Quantity: 90 Refills: 3 Procedures History of Cholecystectomy Status: Compl eted Immunizations Immunizations not documented Family History Father Family history of hypertension (V17.49) (Z82.49) Status: Act octavia Family history of cardiac disorder (V17.49) (Z82.49) Status: Active Mother Family history of hypertension (V17.49) (Z82.49) Status: Act octavia Family history of malignant neoplasm of urinary bladder (V16 .52) Status: Active (Z80.52) Social History - Smoking Status Smoker. current status unknown Plan of Treatment Planned Observations Planned Goals not documented Results No Known Results Results not documented Encounters Appointment; Marcos Perales M.D. 26-Feb-2018 11:45 Encounter Diagnosis: Problem not documented
[2019-03-18] MEDS: ACETAMINOPHEN 325 MG TAB PO PRN ×3 (00:30→23:07)
[2019-03-18] MEDS: OXYCODONE HCL IR 5 MG TAB (IMMEDIATE RELEASE) PO PRN ×4 (03:10→23:08)
[2019-03-18 06:43] LABS: Hematocrit (blood only) 35.7 % (42-52); Hemoglobin 12.1 g/dL (14.0-18.0); Mean Corpuscular Hgb Conc 33.9 g/dL (32-36); Mean Corpuscular Volume 82.6 fL (80-100); Mean Platelet Volume 8.7 fL (7.4-10.4); Platelet Count 318 K/uL (130-400); RDW Standard Deviation 49.1 fL (36.4-46.3); Red Blood Count 4.32 M/uL (4.7-6.1); White Blood Count 10.55 K/uL (4.8-10.8)
[2019-03-18 06:50] LABS: INR 3.3 (0.9-1.1); Prothrombin Time 31.3 Seconds (9.0-12.0)
[2019-03-18 07:20] LABS: BUN Creatinine Ratio 38.6 (10-20); Blood Urea Nitrogen 10 mg/dl (7-18); Calcium 8.6 mg/dl (8.5-10.1); Carbon Dioxide 25 mmol/L (21-32); Chloride 107 mmol/L (98-107); Creatinine Clr Calc Pharmacy 295.1 ml/min; Est GFR (African American) > 150.0; Est GFR (Non-African American) 148.1; Glucose 98 mg/dl (70-99); Potassium 3.6 mmol/L (3.5-5.1); Sodium 137 mmol/L (136-145)
[2019-03-18] MEDS: PIPERACILLIN/TAZOBACTAM 4.5 GM in DEXTROSE 5% 100 ML IV SCH ×2 (08:09→15:46)
[2019-03-18] MEDS: BACLOFEN 20 MG TAB PO SCH ×3 (08:28→22:06)
[2019-03-18] MEDS: ASCORBIC ACID 500 MG TAB PO SCH (08:28)
[2019-03-18] MEDS: AMLODIPINE BESYLATE 5 MG TAB PO SCH (08:28)
[2019-03-18] MEDS: DOCUSATE SODIUM/SENNA 50/8.6MG TAB PO SCH (08:28)
[2019-03-18] MEDS: PRAVASTATIN SOD 20 MG TAB PO SCH (08:28)
[2019-03-18] MEDS: LACTOBACILLUS ACIDOPHILUS (FLORANEX) TAB PO SCH (08:28)
[2019-03-18] MEDS: GABAPENTIN 300 MG CAP PO SCH ×4 (08:29→22:07)
[2019-03-18] MEDS: LUBIPROSTONE 8 MCG CAP PO SCH ×2 (08:29→22:06)
[2019-03-18] MEDS: METOPROLOL TARTRATE 25 MG TAB PO SCH ×2 (08:30→22:07)
[2019-03-18] MEDS: CALCIUM 600MG + VIT D 400 IU TAB PO SCH ×3 (08:30→22:06)
[2019-03-18] MEDS: LIDOCAINE 5% 1 PATCH TD SCH (08:30)
[2019-03-18] MEDS: DULOXETINE HCL 60 MG CAP PO SCH (08:35)
[2019-03-18] MEDS ORDERED: VANCOMYCIN TROUGH ONE (09:30)
[2019-03-18] MEDS: COLLAGENASE OINT 30 GM TUBE EXT SCH ×2 (09:56→22:05)
[2019-03-18] MEDS: VANCOMYCIN HCL 1,250 MG in SODIUM CHLORIDE 0.9% 250 ML IV SCH ×2 (11:32→20:14)
--- NOTE | 2019-03-18 12:03 | Urology Progress Note ---
Date of Service March 18, 2019 Assessment & Plan (1) UTI (urinary tract infection): (2) Wound infection: 68yo M with UTI hx, neurogenic bladder, indwelling SPT SPT changed today with usual 24fr silver alloy catheter. Pt tolerated well. There was concern for cellulitis to lower abdomen and drainage around catheter. I don't believe he has an active or SPT related infection. Does appear to be macerated but not acutely infected. No increase warmth, tenderness or fluctuant areas noted. Pt also states no changes to the appearance of his lower abdomen, however his was not at bedside to attest to this. Continue nystatin powder TID. Continue abx per ID for suspected osteomyelitis. Note, after completion of 6 week course of ciprofloxacin we would like patient to resume doxycycline and methenamine for UTI prophylaxis. No new recommendations at this time. Please reconsult us with additional concerns, questions, or changes in patient status. Subjective 68yo M with established SPT, admitted with sepsis related to decubitus infection. No family members at bedside at time of evaluation today. Due for suprapubic change (on q2week schedule with 24 fr silver alloy catheters). Suprapubic catheter changed using usual sterile technique. SP tube site cleansed with betadine, old SP tube balloon deflated (holding ~ 9cc sterile water) removed. New SP tube replaced without difficulty, 10cc sterile water inflated into balloon. Patient tolerated well. No urine return initially, however I went to reassess pt 1 hour later. Good amount of yellow urine noted in tubing at that time. Review of Systems Review of Systems: All systems reviewed & are unremarkable except as noted in HPI & below Physical Exam Physical Exam: A&0x3 RRR abd obese but soft. SP tube site is intact, with moderate amount of exudative drainage. Not unexpected. Lower abdomen with tough, reddened skin. Likely due to long standing irritation, dermatitis. Nystatin powder scattered around appropriately. Results & Data Vital Signs (Past 12 Hours) Vital Signs Temp Pulse Resp BP Pulse Ox 03/18/19 06:50 36.8 C 81 18 123/79 97
--- NOTE | 2019-03-18 12:28 | Pharmacy Report ---
Pharmacy Abx Dose Short Note - Date of Service March 18, 2019 - Assessment & Plan Assessment 68 year old M receiving vancomycin/zosyn for treatment of SSTI. Wound culture growing hall sensitive serratia, currently covered by zosyn. Day # 4 of antimicrobial therapy. Plan Vancomycin * Trough level of 12.8 mcg/mL is subtherapeutic. * Change to 1250 mg IV every 10 hours starting @ 1999 * Goal trough level : 15 to 20 mcg/mL * Trough or random level ordered for: 03/19/19 @ 1530. Pharmacy will continue to follow and will adjust dose/frequency as necessary. Thank you.
--- NOTE | 2019-03-18 13:19 | Hospitalist Progress Note ---
Date of Service March 18, 2019 Assessment & Plan (1) Osteomyelitis: (2) Wound infection: Patient is a 68 y/o paraplegic x 40 years with chronic right knee, lateral aspect wounds, right buttock wound for which she follows up with wound care clinic on a weekly basis. Recently he was at [facility] post teeth extraction for Lovenox/Coumadin bridging. Went for his routine follow-up visit at wound care clinic last Zhao where he was noted to have purulent drainage/foul- smelling wounds and was sent to ED, [facility]. Transferred to our hospital for ID opinion. -[facility] Work up- 03/15- WBC 16k, ESR,, CRP Elevated (Unable to find results), Creatinine- 0.5, INR 1.17, Blood cx x 2- negative, Wound cx b/l collected at wound clinic as below. MRI w/o contrast- Unable to r/o OM, Soft tissue infection along outer margin of knee with extension to involve adjacent with soft tissues around bony elements of knee, chronic unhealed fracture at the distal femur, chronic ACL tear, maceration of menisci, knee degenerative changes, x-patrice healed chronic distal femur fracture RIGHT KNEE (LATERAL SIDE) WOUND INFECTION - RIGHT BUTTOCK PRESSURE ULCER STAGE III WITH CELLULITIS - SUPRA PUBIC SITE CELLULITIS involving groin/penis- ACUTE OSTEOMYELITIS CONFIRMED BY MRI MRI here on 03/16 shows- Moderate edema and enhancement -ant compartment of LL - myositis Large joint effusion with synovitis + -On IV Vancomycin, Zosyn- Day 5 (Was started on antibiotics on 03/14/19 at [facility] [place]) -Wound care on board. Appreciate inputs. (Follows up at wound care clinic). -ID consulted -Called [facility] on 03/17/19 for culture results - Wound cx on 03/14/19 (collected at wound clinic)- Heavy growth- Enterococcus Fecalis, Mod growth -Serratia, Heavy growth- Klebsiella pneumonia, Sensitivities will be faxed . - Wound cx on 03/15/19- Serratia , Blood cx = neg, Urine cx- yeast - For large joint effusion, consulted orthopedics- does not recommend aspiration at this point - Awaiting ID inputs for antibiotics acc to c/s results, most likely will need it for 6 weeks. UTI As per [facility] hospital records Chronic supra pubic catheter + for neurogenic bladder Surrounding area- Cellulitis + with some drainage -Urine cx at [facility]- cancelled. -Urine cx here- yeast, doubt significance with chronic indwelling supra pubic catheter -On Antibiotics as above -Need to change supra pubic catheter tube (d/w urology- will do it today or tomorrow - routine q 2 weekly change is due tomorrow) HX OF DVT/IMMOBILIZATION -Was at [facility] prior to admission for lovenox/coumadin bridging post 4 teeth extraction procedure. -S/P lovenox/coumadin bridging prior to admission. INR 3.3. Hold COumadin -INR monitoring HX OF PARAPLEGIA HX OF NEUROGENIC BLADDER -Chronic suprapubic catheter- change tubing -Bed ridden x 4 decades HTN Stable Continue with home meds- lisinopril. Hold lasix- monitor weight COPD with no exacerbation -Nebs PRN HX OF SYRINGOMYELIACTOMY HX OF PRIOR MRSA/VRE HX OF CAD -Continue with home meds DVT PROPHYLAXIS Coumadin FULL CODE as per DISPOSITION Medical mx in progress Updated over phone and answered all her questions. Discussed with ID about the updated culture results from [facility]- awaiting inputs CM on board as most likely will need to be discharged to a facility for prolonged antibiotics Subjective Patient is lethargic today, says feels weak. Afebrile. No chills. Physical Exam Constitutional: WD/WN, vitals as above + ill appearing Eyes: PERRL, conjunctivae normal, anicteric sclerae Respiratory: normal respiratory effort, lungs clear to auscultation Cardiovascular: RRR, no murmur, no edema Gastrointestinal (Abdomen): normal bowel sounds, soft, nontender, no hepatosplenomegaly Skin: + ulcer (Right knee- lateral aspect- approx 3 x 3 cm,exposed tendons, discharge ) Neurologic: Motor/Sensory: + abnormal movement (PARAPLEGIA + ) Results & Data Vital Signs (Past 12 Hours) Vital Signs Temp Pulse Resp BP Pulse Ox 03/18/19 06:50 36.8 C 81 18 123/79 97
--- NOTE | 2019-03-18 14:39 | Infectious Disease Progress Nt ---
Date of Service March 18, 2019 Assessment & Plan (1) Wound infection: no plan for OR at this time. would suggest change abx to po cipro 500mg po bid x 6 weeks for suspected osteo. will need ongoing wound care post d/c from hospital. no new ID recs at this time. Subjective s/p ortho eval, no plans for OR aspiration. wound culture growing hall sensitive serritia. blood cultures negative. afebrile. remains on vanco and zoysn, lethargic on exam,wbc 10.5. Review of Systems Review of Systems: Unobtainable due to cognitive status Physical Exam Constitutional: + thin and + altered mental status ENMT: external ear and nose normal, oropharynx normal Neck: normal visual inspection Respiratory: normal respiratory effort, lungs clear to auscultation Auscultation: + diminished lung sounds Cardiovascular: RRR, no murmur, no edema Gastrointestinal (Abdomen): Inspection/Auscultation: abdomen normal to inspection Musculoskeletal: Head/Neck/Chest: normocephalic Skin: no rashes, warm and dry Results & Data Vital Signs (Past 12 Hours) Vital Signs Temp Pulse Resp BP Pulse Ox 03/18/19 06:50 36.8 C 81 18 123/79 97 Laboratory Results Microbiology 03/15/19 20:00 Urine,Suprapubic Urine Culture - Final Marie albicans 03/15/19 22:25 Leg,Right Gram Stain - Final 03/15/19 22:25 Leg,Right Wound Culture - Final Serratia marcescens 03/15/19 19:37 Blood Blood Culture - Preliminary No growth to date. 03/15/19 19:01 Blood Blood Culture - Preliminary No growth to date.
[2019-03-18] MEDS ORDERED: cefTRIAXone SODIUM 1,000 MG in DEXTROSE 5% 50 ML IV SCH (17:45)
[2019-03-18] MEDS ORDERED: cefTRIAXone SODIUM 2,000 MG in DEXTROSE 5% 50 ML IV SCH (20:00)
[2019-03-19] MEDS: MoRPHine SULFATE 4 MG/ML 1 ML CARP\\VIAL IV PRN ×3 (00:41→22:56)
[2019-03-19] MEDS: VANCOMYCIN HCL 1,250 MG in SODIUM CHLORIDE 0.9% 250 ML IV SCH (06:23)
--- NOTE | 2019-03-19 07:56 | Urology Progress Note ---
Date of Service March 19, 2019 Assessment & Plan (1) UTI (urinary tract infection): SP tube changed yesterday - urine clear - skin looks ok - subjectively doing well - cont current care Subjective no issues overnight Physical Exam Physical Exam: SP site with minimal erythema - likely related to urine leak/moisture - does not appear actively infected urine clear Results & Data Vital Signs (Past 12 Hours) Vital Signs Temp Pulse Resp BP Pulse Ox 03/18/19 23:23 36.6 C 73 16 113/67 92
[2019-03-19 07:57] LABS: INR 3.5 (0.9-1.1); Prothrombin Time 32.5 Seconds (9.0-12.0)
[2019-03-19 08:25] LABS: BUN Creatinine Ratio 37.8 (10-20); Calcium 8.5 mg/dl (8.5-10.1); Creatinine Clr Calc Pharmacy 199.4 ml/min; Est GFR (African American) 146.1; Potassium 3.5 mmol/L (3.5-5.1)
[2019-03-19 08:39] LABS: Mean Corpuscular Hgb Conc 33.2 g/dL (32-36); Mean Platelet Volume 8.9 fL (7.4-10.4); Platelet Count 325 K/uL (130-400)
[2019-03-19 08:42] LABS: Hematocrit (blood only) 33.4 % (42-52); Hemoglobin 11.1 g/dL (14.0-18.0); Mean Corpuscular Volume 83.5 fL (80-100); RDW Standard Deviation 49.3 fL (36.4-46.3); White Blood Count 8.31 K/uL (4.8-10.8)
[2019-03-19] MEDS: METOPROLOL TARTRATE 25 MG TAB PO SCH ×2 (09:02→20:50)
[2019-03-19] MEDS: BACLOFEN 20 MG TAB PO SCH ×3 (09:03→20:51)
[2019-03-19] MEDS: ASCORBIC ACID 500 MG TAB PO SCH (09:03)
[2019-03-19] MEDS: AMLODIPINE BESYLATE 5 MG TAB PO SCH (09:04)
[2019-03-19] MEDS: GABAPENTIN 300 MG CAP PO SCH ×4 (09:04→20:51)
[2019-03-19] MEDS: PRAVASTATIN SOD 20 MG TAB PO SCH (09:04)
[2019-03-19] MEDS: DULOXETINE HCL 60 MG CAP PO SCH (09:04)
[2019-03-19] MEDS: LACTOBACILLUS ACIDOPHILUS (FLORANEX) TAB PO SCH (09:04)
[2019-03-19] MEDS: CALCIUM 600MG + VIT D 400 IU TAB PO SCH ×3 (09:05→20:51)
[2019-03-19] MEDS: DOCUSATE SODIUM/SENNA 50/8.6MG TAB PO SCH (09:05)
[2019-03-19] MEDS: COLLAGENASE OINT 30 GM TUBE EXT SCH ×2 (09:06→20:57)
[2019-03-19] MEDS: LUBIPROSTONE 8 MCG CAP PO SCH ×2 (09:06→20:50)
[2019-03-19] MEDS: LIDOCAINE 5% 1 PATCH TD SCH (09:06)
[2019-03-19] MEDS: OXYCODONE HCL IR 5 MG TAB (IMMEDIATE RELEASE) PO PRN ×2 (10:50→20:51)
[2019-03-19] MEDS: CIPROFLOXACIN 500 MG TAB PO SCH ×2 (10:54→20:51)
--- NOTE | 2019-03-19 14:27 | Infectious Disease Progress Nt ---
Date of Service March 19, 2019 Assessment & Plan (1) Wound infection: Based on cultures from both [facility] and [facility], would suggest transition to po cipro 500mg po bid and Augmentin 875mg po bid x 6 weeks. Suggest probiotic as well. Spoke with primary service. ok for d/c when otherwise stable. will need continued wound care at [facility] post d/c. No plans for OR. Subjective pt much more awake today. watching TV. Denies f/c, has been afebrile. Remains on vanco and rocephin. wbc 8.3. no pain in rle. Old micro from [facility] reviewed - Serratia, Klebsiella and E. faecalis, cultures here growing Serritia only. Final sensitivities reviewed - po options available. Pt states he would like to treat with po abx, if able. no abd pain, no n/v/d. no cp, sob, cough, wheeze. eating well. Review of Systems Review of Systems: All systems reviewed & are unremarkable except as noted in HPI & below Physical Exam Constitutional: + thin and + altered mental status ENMT: external ear and nose normal, oropharynx normal Neck: normal visual inspection Respiratory: normal respiratory effort, lungs clear to auscultation Auscultation: + diminished lung sounds Cardiovascular: RRR, no murmur, no edema Gastrointestinal (Abdomen): Inspection/Auscultation: abdomen normal to inspect ion Musculoskeletal: Head/Neck/Chest: normocephalic Skin: no rashes, warm and dry Results & Data Vital Signs (Past 12 Hours) Vital Signs Temp Pulse Resp BP Pulse Ox 03/19/19 11:46 36.7 C 82 16 130/74 94 03/19/19 08:00 36.6 C 88 18 156/89 H 94 Laboratory Results Microbiology 03/15/19 20:00 Urine,Suprapubic Urine Culture - Final Marie albicans 03/15/19 22:25 Leg,Right Gram Stain - Final 03/15/19 22:25 Leg,Right Wound Culture - Final Serratia marcescens 03/15/19 19:37 Blood Blood Culture - Preliminary No growth to date. 03/15/19 19:01 Blood Blood Culture - Preliminary No growth to date.
[2019-03-19] MEDS ORDERED: LACTULOSE SYRUP 30 GM/45 ML UDP PO STA (14:31)
--- NOTE | 2019-03-19 15:07 | Hospitalist Progress Note ---
Date of Service March 19, 2019 Assessment & Plan (1) Osteomyelitis: Patient is a 68 y/o paraplegic x 40 years with chronic right knee, lateral aspect wounds, right buttock wound for which she follows up with wound care clinic on a weekly basis. Recently he was at [facility] post teeth extraction for Lovenox/Coumadin bridging. Went for his routine follow-up visit at wound care clinic last Zhao where he was noted to have purulent drainage/foul- smelling wounds and was sent to ED, [facility]. Transferred to our hospital for ID opinion. [facility] Work up- 03/15- WBC 16k, ESR,, CRP Elevated (Unable to find results), Creatinine- 0.5, INR 1.17, Blood cx x 2- negative, Wound cx b/l collected at wound clinic as below. MRI w/o contrast- Unable to r/o OM, Soft tissue infection along outer margin of knee with extension to involve adjacent with soft tissues around bony elements of knee, chronic unhealed fracture at the distal femur, chronic ACL tear, maceration of menisci, knee degenerative changes, x-patrice healed chronic distal femur fracture ACUTE OSTEOMYELITIS CONFIRMED BY MRI MRI 03/16/19 1. Moderate cellulitis with soft tissue ulcer about the lateral knee at the level of the lateral femoral condyle. Adjacent bony erosive changes about the posterior aspect of the lateral femoral condyle are suggestive of associated acute osteomyelitis. 2. Moderate edema and enhancement about the imaged anterior compartment of the lower leg compatible with myositis. 3. Large joint effusion with synovitis. 4. Remote appearing displaced distal femoral fracture. -patient initially on IV Vancomycin and IV Zosyn - IV Zosyn was stopped on 03/18/19 when patient was transitioned to ceftriaxone, IV Ceftriaxone and IV Vancomycin was stopped on 03/19/19 and as per infectious disease consult was transition to oral Ciprofloxacin and oral Augmentin (2) Wound infection: RIGHT KNEE (LATERAL SIDE) WOUND INFECTION with ulcer RIGHT BUTTOCK PRESSURE ULCER WITH CELLULITIS - SUPRA PUBIC SITE CELLULITIS involving groin/penis- -[facility] for culture results - Wound cx on 03/14/19 (collected at wound clinic)- Heavy growth- Enterococcus Fecalis, Mod growth -Serratia, Heavy growth- Klebsiella pneumonia, Sensitivities will be faxed . - Wound culture o on 03/15/19- Serratia , Blood cx = neg, Urine cx- yeast - wound/skin care and repositioning for buttock and scrotum, minimize wetness to the buttock and scrotal areas - For large joint effusion, consulted orthopedics- does not recommend aspiration at this point - on antibiotics as above PARAPLEGIA HX OF SYRINGOMYELIACTOMY Neurogenic Bladder UTI Chronic supra pubic catheter for neurogenic bladder; Surrounding area with Cellulitis -on antibiotics as above -catheter was changed by [facility] on 03/18/19; adjustment of catheter was [facility] HX OF DVT/IMMOBILIZATION Anticoagulated by Anticoagulation Therapy -coumadin use -INR 3.5 on 03/19/19, continue to hold Coumadin -trend INR HTN Continue with amlodipine resume home dose lasix COPD with no exacerbation -Nebs PRN HX OF CAD -Continue with home meds HX OF PRIOR MRSA/VRE -contact precautions DVT PROPHYLAXIS Is anticoagulated by anticoagulation therapy of Coumadin, trend INR FULL CODE Subjective Patient denies acute pain. No lightheadedness. No dizziness. No vomiting. No fever. Needed to be turned by nursing. Patient denies shortness of breath. Nurse concern that suprapubic catheter needs adjustment. Physical Exam Constitutional: well nourished Eyes: PERRL, conjunctivae normal, anicteric sclerae EOM intact bilaterally ENMT: external ear and nose normal, oropharynx normal Neck: normal visual inspection and trachea midline Respiratory: normal respiratory effort, lungs clear to auscultation Cardiovascular: Rate/Rhythm: regular rate and regular rhythm Gastrointestinal (Abdomen): normal bowel sounds, soft, nontender, no hepatosplenomegaly Skin: + ulcer (buttock with skin squamation and redness, right leg ulcer, scrotal erythema) Neurologic: PERRL, EOMI, accommodation nl, no face palsy, no dysarthria Psychiatric: A+Ox3, euthymic affect Genitourinary: + penis abnormality (gomez catheter) Results & Data Vital Signs (Past 12 Hours) Vital Signs Temp Pulse Resp BP Pulse Ox 03/19/19 11:46 36.7 C 82 16 130/74 94 03/19/19 08:00 36.6 C 88 18 156/89 H 94
[2019-03-19] MEDS ORDERED: VANCOMYCIN TROUGH ONE (15:30)
[2019-03-19] MEDS: ACETAMINOPHEN 325 MG TAB PO PRN (16:01)
[2019-03-19] MEDS: FUROSEMIDE 20 MG TAB PO SCH (16:52)
[2019-03-19] MEDS: AMOXICILLIN/CLAVULANATE 875 MG TAB PO SCH (20:51)
[2019-03-20] MEDS: ACETAMINOPHEN 325 MG TAB PO PRN (01:11)
[2019-03-20] MEDS: OXYCODONE HCL IR 5 MG TAB (IMMEDIATE RELEASE) PO PRN ×2 (03:05→13:45)
[2019-03-20] MEDS: BACLOFEN 20 MG TAB PO SCH ×2 (07:53→13:47)
[2019-03-20] MEDS: CIPROFLOXACIN 500 MG TAB PO SCH (07:53)
[2019-03-20] MEDS: CALCIUM 600MG + VIT D 400 IU TAB PO SCH ×2 (07:53→13:47)
[2019-03-20] MEDS: AMOXICILLIN/CLAVULANATE 875 MG TAB PO SCH (07:53)
[2019-03-20] MEDS: LUBIPROSTONE 8 MCG CAP PO SCH (07:53)
[2019-03-20] MEDS: FUROSEMIDE 20 MG TAB PO SCH (07:53)
[2019-03-20] MEDS: LIDOCAINE 5% 1 PATCH TD SCH (07:53)
[2019-03-20] MEDS: PRAVASTATIN SOD 20 MG TAB PO SCH (07:54)
[2019-03-20] MEDS: ASCORBIC ACID 500 MG TAB PO SCH (07:54)
[2019-03-20] MEDS: DULOXETINE HCL 60 MG CAP PO SCH (07:54)
[2019-03-20] MEDS: LACTOBACILLUS ACIDOPHILUS (FLORANEX) TAB PO SCH (07:54)
[2019-03-20] MEDS: GABAPENTIN 300 MG CAP PO SCH ×2 (07:54→13:48)
[2019-03-20] MEDS: AMLODIPINE BESYLATE 5 MG TAB PO SCH (07:55)
[2019-03-20] MEDS: DOCUSATE SODIUM/SENNA 50/8.6MG TAB PO SCH (07:55)
[2019-03-20] MEDS: METOPROLOL TARTRATE 25 MG TAB PO SCH (07:55)
[2019-03-20] MEDS: COLLAGENASE OINT 30 GM TUBE EXT SCH (07:56)
[2019-03-20 07:59] LABS: Basophils # (auto) 0.04 K/uL (0-0.2); Basophils % (auto) 0.5 %; Eosinophils # (auto) 0.41 K/uL (0-0.5); Eosinophils % (auto) 5.2 %; Hematocrit (blood only) 35.3 % (42-52); Hemoglobin 11.8 g/dL (14.0-18.0); Immature Granulocytes # (auto) 0.02 K/uL (0.00-0.02); Immature Granulocytes % (auto) 0.3 %; Lymphocytes # (auto) 1.88 K/uL (1.2-3.4); Lymphocytes % (auto) 23.6 %; Mean Corpuscular Hgb Conc 33.4 g/dL (32-36); Mean Corpuscular Volume 83.5 fL (80-100); Mean Platelet Volume 8.6 fL (7.4-10.4); Monocytes # (auto) 1.08 K/uL (0.11-0.59); Monocytes % (auto) 13.6 %; Neutrophils # (auto) 4.53 K/uL (1.4-6.5); Neutrophils % (auto) 56.8 %; Platelet Count 317 K/uL (130-400); RDW Coefficient of Variation 15.7 % (11.5-14.5); Red Blood Count 4.23 M/uL (4.7-6.1); White Blood Count 7.96 K/uL (4.8-10.8)
[2019-03-20 08:16] LABS: INR 2.5 (0.9-1.1); Prothrombin Time 24.3 Seconds (9.0-12.0)
[2019-03-20 08:36] LABS: BUN Creatinine Ratio 33.1 (10-20); Calcium 8.8 mg/dl (8.5-10.1); Creatinine Clr Calc Pharmacy 199.4 ml/min; Est GFR (African American) 146.1; Potassium 3.3 mmol/L (3.5-5.1)
[2019-03-20 08:39] LABS: Albumin Globulin Ratio 0.5 (0.9-2); Bilirubin,Total 0.3 mg/dl (0.2-1); Globulin 4.2 gm/dl (2.5-4.0); Total Protein 6.2 gm/dl (6.4-8.2)
[2019-03-20] MEDS ORDERED: POTASSIUM CHLORIDE 20 MEQ TABCR PO STA (08:40)
--- NOTE | 2019-03-20 10:39 | Hospitalist Progress Note ---
Date of Service March 20, 2019 Assessment & Plan (1) Osteomyelitis: Patient is a 68 y/o paraplegic x 40 years with chronic right knee, lateral aspect wounds, right buttock wound for which she follows up with wound care clinic on a weekly basis. Recently he was at [facility] post teeth extraction for Lovenox/Coumadin bridging. Went for his routine follow-up visit at wound care clinic last Zhao where he was noted to have purulent drainage/foul- smelling wounds and was sent to ED, [facility]. Transferred to our hospital for ID opinion. [facility] Work up- 03/15- WBC 16k, ESR,, CRP Elevated (Unable to find results), Creatinine- 0.5, INR 1.17, Blood cx x 2- negative, Wound cx b/l collected at wound clinic as below. MRI w/o contrast- Unable to r/o OM, Soft tissue infection along outer margin of knee with extension to involve adjacent with soft tissues around bony elements of knee, chronic unhealed fracture at the distal femur, chronic ACL tear, maceration of menisci, knee degenerative changes, x-patrice healed chronic distal femur fracture ACUTE OSTEOMYELITIS CONFIRMED BY MRI MRI 03/16/19 1. Moderate cellulitis with soft tissue ulcer about the lateral knee at the level of the lateral femoral condyle. Adjacent bony erosive changes about the posterior aspect of the lateral femoral condyle are suggestive of associated acute osteomyelitis. 2. Moderate edema and enhancement about the imaged anterior compartment of the lower leg compatible with myositis. 3. Large joint effusion with synovitis. 4. Remote appearing displaced distal femoral fracture. -patient initially on IV Vancomycin and IV Zosyn - IV Zosyn was stopped on 03/18/19 when patient was transitioned to ceftriaxone, IV Ceftriaxone and IV Vancomycin was stopped on 03/19/19 and as per infectious disease consult was transition to oral Ciprofloxacin and oral Augmentin -Patient is discharged to home with prescriptions of Ciprofloxacin 500 mg twice a day and Amoxicillin-clavulanate 875mg/125mg twice a day for 6 weeks Patient should avoid taking duloxetine at home while on Ciprofloxacin to avoid p ossible drug interactions. Patient can discuss with primary care doctor on alternatives to duloxetine (2) Wound infection: RIGHT KNEE (LATERAL SIDE) WOUND INFECTION with ulcer RIGHT BUTTOCK PRESSURE ULCER WITH CELLULITIS - SUPRA PUBIC SITE CELLULITIS involving groin/penis- -Called [facility] on 03/17/19 for culture results - Wound cx on 03/14/19 (collected at wound clinic)- Heavy growth- Enterococcus Fecalis, Mod growth -Serratia, Heavy growth- Klebsiella pneumonia, Sensitivities will be faxed . - Wound culture on on 03/15/19- Serratia , Blood cx = neg, Urine cx- yeast - nurse to instruct patient's family members on wound care prior to discharge - For large joint effusion, consulted orthopedics- does not recommend aspiration at this point - on antibiotics as above PARAPLEGIA HX OF SYRINGOMYELIACTOMY Neurogenic Bladder UTI Chronic supra pubic catheter for neurogenic bladder; Surrounding area with Cellulitis -on antibiotics as above -[facility]19 HX OF DVT/IMMOBILIZATION Anticoagulated by Anticoagulation Therapy (coumadin) -coumadin use -INR 3.5 on 03/19/19, Coumadin held -INR is 2.5 on 03/20/19 and patient can resume home dose coumadin -Patient should also have INR checked by primary care doctor and coumadin clinic while on coumadin 03/24/2019 11:20 AM Provider Derik Clemente DO Department General Internal Medicine [facility] 03/27/2019 5:00 PM Provider [facility] Department Pharmacy, [facility] HTN Continue with amlodipine continue home dose lasix COPD with no exacerbation -Nebs PRN HX OF CAD -Continue with home meds HX OF PRIOR MRSA/VRE -contact precautions DVT PROPHYLAXIS Is anticoagulated by anticoagulation therapy on Coumadin FULL CODE Discharge Instructions Patient is discharged to home with prescriptions of Ciprofloxacin 500 mg twice a day and Amoxicillin-clavulanate 875mg/125mg twice a day for 6 weeks Patient should avoid taking duloxetine at home while on Ciprofloxacin to avoid possible drug interactions. Patient can discuss with primary care doctor on alternatives to duloxetine 03/24/2019 11:20 AM Provider Derik Clemente DO Department General Internal Medicine [facility] Patient should also have INR checked by primary care doctor and coumadin clinic while on coumadin 03/27/2019 5:00 PM Provider [facility] Sp Department Pharmacy, [facility] Discharge Diagnosis ACUTE OSTEOMYELITIS, RIGHT KNEE (LATERAL SIDE) WOUND INFECTION with ulcer; RIGHT BUTTOCK PRESSURE ULCER WITH CELLULITIS; SUPRA PUBIC SITE CELLULITIS involving groin/penis, PARAPLEGIA, Neurogenic Bladder, acute cystitis urinary tract infection, 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 No shortness of breath. No lightheadedness. No acute complaints. Patient defers to his on where he goes after the hospital stay and patient personally prefers to go home rather than a physical therapy center or SNF. As per discussions with employment case manager and patient's , patient's to take patient home. Physical Exam Constitutional: well nourished Eyes: PERRL, conjunctivae normal, anicteric sclerae EOM intact bilaterally ENMT: external ear and nose normal, oropharynx normal Neck: normal visual inspection and trachea midline Respiratory: normal respiratory effort, lungs clear to auscultation Cardiovascular: Rate/Rhythm: regular rate and regular rhythm Gastrointestinal (Abdomen): normal bowel sounds, soft, nontender, no hepatosplenomegaly Skin: + ulcer (buttock with skin squamation and redness, right leg ulcer, scrotal erythema) Neurologic: PERRL, EOMI, accommodation nl, no face palsy, no dysarthria Psychiatric: A+Ox3, euthymic affect Genitourinary: + penis abnormality (gomez catheter) Results & Data Vital Signs (Past 12 Hours) Vital Signs Temp Pulse Pulse Resp BP Pulse Ox 03/20/19 07:48 36.7 C 85 16 131/77 93 03/19/19 22:56 36.7 C 91 H 16 139/76 95
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
--- NOTE | 2019-03-20 11:08 | Urology Progress Note ---
Date of Service March 20, 2019 Assessment & Plan (1) UTI (urinary tract infection): (2) Sepsis: 60y M with neurogenic bladder, SPT and Hx of UTI. Suprapubic catheter site assessed. Patent, without leaking. Draining hazy/cloudy yellow. No new issues or concerns. If leaking becomes more of an issue, please make us aware. Please reconsult with any additional issues, concerns or changes in patient status. Subjective 68yo M with neurogenic bladder, SPT, hx UTI Doing well since SP change from standpoint, draining to gravity. Some leaking yesterday but has since resolved. Pt has no new complaints or issues. No n/v/f/c. Good appetite. Review of Systems Review of Systems: All systems reviewed & are unremarkable except as noted in HPI & below Physical Exam Physical Exam: A&Ox3 RRR Abd soft SP tube site intact and draining to gravity. no leaking noted. Results & Data Vital Signs (Past 12 Hours) Vital Signs Temp Pulse Resp BP Pulse Ox 03/20/19 07:48 36.7 C 85 16 131/77 93 Laboratory Results Laboratory Results - last 48 hr 03/19/19 03/19/19 03/19/19 07:02 07:02 07:02 WBC 8.31 RBC 4.00 L Hgb 11.1 L Hct 33.4 L MCV 83.5 MCH 27.8 MCHC 33.2 RDW Std Deviation 49.3 H RDW Coeff of Daniel 16.0 H Plt Count 325 MPV 8.9 Immature Gran % (Auto) Neut % (Auto) Lymph % (Auto) [place] % (Auto) Eos % (Auto) Baso % (Auto) Immature Gran # (Auto) Neut # (Auto) Lymph # (Auto) [place] # (Auto) Eos # (Auto) Baso # (Auto) PT 32.5 H INR 3.5 H Sodium 140 Potassium 3.5 Chloride 107 Carbon Dioxide 28 Anion Gap 5.0 BUN 14 Creatinine 0.37 L Est Cr Clr Drug Dosing 199.4 Est GFR ( Amer) 146.1 Est GFR (Non-Af Amer) 126.0 BUN/Creatinine Ratio 37.8 H Glucose 111 H Calcium 8.5 Total Bilirubin AST ALT Alkaline Phosphatase Total Protein Albumin Globulin Albumin/Globulin Ratio 03/20/19 03/20/19 03/20/19 07:47 07:47 07:47 WBC 7.96 RBC 4.23 L Hgb 11.8 L Hct 35.3 L MCV 83.5 MCH 27.9 MCHC 33.4 RDW Std Deviation 48.0 H RDW Coeff of Daniel 15.7 H Plt Count 317 MPV 8.6 Immature Gran % (Auto) 0.3 Neut % (Auto) 56.8 Lymph % (Auto) 23.6 [place] % (Auto) 13.6 Eos % (Auto) 5.2 Baso % (Auto) 0.5 Immature Gran # (Auto) 0.02 Neut # (Auto) 4.53 Lymph # (Auto) 1.88 [place] # (Auto) 1.08 H Eos # (Auto) 0.41 Baso # (Auto) 0.04 PT 24.3 H INR 2.5 H Sodium 137 Potassium 3.3 L Chloride 104 Carbon Dioxide 27 Anion Gap 6.0 BUN 12 Creatinine 0.37 L Est Cr Clr Drug Dosing 199.4 Est GFR ( Amer) 146.1 Est GFR (Non-Af Amer) 126.0 BUN/Creatinine Ratio 33.1 H Glucose 106 H Calcium 8.8 Total Bilirubin 0.3 AST 9 L ALT 35 Alkaline Phosphatase 119 H Total Protein 6.2 L Albumin 2.0 L Globulin 4.2 H Albumin/Globulin Ratio 0.5 L
== END 2019-03-20 15:30 | DRG 539 ==
LOC: SUATTDRO 17:35 → 3W 17:35

== ENCOUNTER 2019-04-25 10:17 | Inpatient (IN) ==
--- NOTE | 2019-04-09 11:13 | PAT Medication Instructions ---
Medication Instructions Date of Service April 09, 2019 Home Medications Calcium 600 + D(3) 3 cap PO DAILY amlodipine 2.5 mg PO DAILY ascorbic acid (vitamin C) [Vitamin C] 500 mg PO DAILY cholestyramine (with sugar) 4 g PO BID PRN furosemide [Lasix] 20 mg PO DAILY gabapentin 2 cap PO QID metoprolol tartrate 12.5 mg PO BID pravastatin 20 mg PO DAILY warfarin 1 tab PO UD acetaminophen 650 mg PO Q6H PRN baclofen 20 mg PO TID bisacodyl [Biscolax] 10 mg NE Q3D PRN [id number] A-D-aloe [Zinc Oxide Diaper Cream] 1 applic TOPICAL BID docusate sodium 100 mg PO BID duloxetine 60 mg PO DAILY lubiprostone [Amitiza] 24 mcg PO BID magnesium hydroxide [Milk of Magnesia] 30 ml PO DAILY PRN menthol-zinc oxide [Calmoseptine] 1 applic TOPICAL DAILY multivitamin 1 tab PO DAILY nystatin 1 applic TOPICAL BID oxycodone 5 mg PO QID PRN sodium phosphates [Enema] 118 ml NE HS PRN warfarin [Coumadin] 2 mg PO UD ASK your prescriber and surgeon warfarin 1 tab PO UD warfarin [Coumadin] 2 mg PO UD STOP taking 24 hours before surgery cholestyramine (with sugar) 4 g PO BID PRN [id number]-fpt A-D-aloe [Zinc Oxide Diaper Cream] 1 applic TOPICAL BID menthol-zinc oxide [Calmoseptine] 1 applic TOPICAL DAILY nystatin 1 applic TOPICAL BID DO NOT take the morning of surgery Calcium 600 + D(3) 3 cap PO DAILY ascorbic acid (vitamin C) [Vitamin C] 500 mg PO DAILY furosemide [Lasix] 20 mg PO DAILY baclofen 20 mg PO TID bisacodyl [Biscolax] 10 mg NE Q3D PRN docusate sodium 100 mg PO BID lubiprostone [Amitiza] 24 mcg PO BID magnesium hydroxide [Milk of Magnesia] 30 ml PO DAILY PRN multivitamin 1 tab PO DAILY Take morning of surgery With a small sip of water, OTHERWISE NOTHING TO EAT OR DRINK AFTER MIDNIGHT: amlodipine 2.5 mg PO DAILY gabapentin 2 cap PO QID metoprolol tartrate 12.5 mg PO BID pravastatin 20 mg PO DAILY acetaminophen 650 mg PO Q6H PRN (okay to take up to 4 hours prior to surgery if needed) duloxetine 60 mg PO DAILY oxycodone 5 mg PO QID PRN (okay to take up to 4 hours prior to surgery if neede d) Take evening before surgery gabapentin 2 cap PO QID metoprolol tartrate 12.5 mg PO BID acetaminophen 650 mg PO Q6H PRN (if needed) baclofen 20 mg PO TID docusate sodium 100 mg PO BID lubiprostone [Amitiza] 24 mcg PO BID oxycodone 5 mg PO QID PRN (if needed) sodium phosphates [Enema] 118 ml NE HS PRN (if needed) Other Notes If you have any questions please call us at [phone] or [phone] or [phone] or [phone]
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
--- NOTE | 2019-04-24 09:03 | Anesthesiology Consultation ---
Date of Service April 24, 2019 Assessment & Plan (1) Encounter for pre-operative examination: Chart Review Chart Review: Patient NOT seen in Pre Admission Testing Consults Requested none History Surgery Operation Date: 04/25/19 12:30 Proposed Procedures p Right Leg Above the Knee Amputation - Cr Lopez MD Height/Weight Height: 5 ft 8 in Weight: 74.843 kg Allergies Allergy/AdvReac Type Severity Reaction Status Date / Time JAYMIE Inhibitors Allergy Severe angioedema Verified 04/09/19 07:49 Bactrim Allergy Severe URTICARIA Verified 07/07/18 15:03 WITH ANGIOEDEMA TONGUE, LIPS sulfamethoxazole Allergy Severe URTICARIA Verified 04/09/19 07:49 WITH ANGIOEDEMA TONGUE, LIPS trimethoprim Allergy Severe URTICARIA Verified 04/09/19 07:49 WITH ANGIOEDEMA TONGUE, LIPS Sulfa (Sulfonamide Allergy Intermediate FACIAL Verified 04/09/19 07:49 Antibiotics) BOILS Medications Home Medications Medication Instructions Recorded Confirmed Last Taken Calcium 600 + D(3) 3 cap PO DAILY 03/15/19 04/09/19 Unknown amlodipine 2.5 mg PO DAILY 03/15/19 04/09/19 Unknown ascorbic acid (vitamin C) [Vitamin 500 mg PO DAILY 03/15/19 04/09/19 Unknown C] cholestyramine (with sugar) 4 g PO BID PRN 03/15/19 04/09/19 Unknown furosemide [Lasix] 20 mg PO DAILY 03/15/19 04/09/19 Unknown gabapentin 2 cap PO QID 03/15/19 04/09/19 Unknown metoprolol tartrate 12.5 mg PO BID 03/15/19 04/09/19 Unknown pravastatin 20 mg PO DAILY 03/15/19 04/09/19 Unknown warfarin 1 tab PO UD 03/15/19 04/09/19 Unknown acetaminophen 650 mg PO Q6H PRN 04/09/19 04/09/19 Unknown baclofen 20 mg PO TID 04/09/19 04/09/19 Unknown bisacodyl [Biscolax] 10 mg MI Q3D PRN 04/09/19 04/09/19 Unknown gmuvylsnzle-AnJa-xjd A-D-aloe 1 applic TOPICAL BID 04/09/19 04/09/19 Unknown [Zinc Oxide Diaper Cream] docusate sodium 100 mg PO BID 04/09/19 04/09/19 Unknown duloxetine 60 mg PO DAILY 04/09/19 04/09/19 Unknown lubiprostone [Amitiza] 24 mcg PO BID 04/09/19 04/09/19 Unknown magnesium hydroxide [Milk of 30 ml PO DAILY PRN 04/09/19 04/09/19 Unknown Magnesia] menthol-zinc oxide [Calmoseptine] 1 applic TOPICAL DAILY 04/09/19 04/09/19 Unknown multivitamin 1 tab PO DAILY 04/09/19 04/09/19 Unknown nystatin 1 applic TOPICAL BID 04/09/19 04/09/19 Unknown oxycodone 5 mg PO QID PRN 04/09/19 04/09/19 Unknown sodium phosphates [Enema] 118 ml MI HS PRN 04/09/19 04/09/19 Unknown warfarin [Coumadin] 2 mg PO UD 04/09/19 04/09/19 Unknown Past Medical History Medical History Osteomyelitis Wound infection UTI (urinary tract infection) (Acute) Decubital ulcer (Acute) Sepsis (Acute Unknown) Methicillin resistant Staphylococcus aureus infection (Chronic Unknown) urine 2008 Urosepsis (Acute) Altered mental status (Acute Unknown) Encephalopathy (Acute 10/21/13) Subdural hemorrhage (Resolved Unknown) Delirium (Resolved Unknown) Syringomyelia (Chronic Unknown) Suprapubic cystostomy (Chronic Unknown) Paraplegia (Chronic Unknown) T8 Recurrent urinary tract infection (Chronic Unknown) Renal mass (Chronic Unknown) Dyslipidemia (Chronic Unknown) Clostridium difficile infection (Resolved 04/04/13) 2007 Neurogenic bladder Past Surgical History Surgical History History of cholecystectomy Social History Smoking Status: Former smoker tobacco type: pipe Do You Dip or Chew Tobacco: No Smoking End Date: QUIT SMOKING PIPE IN THE LAST 6 MONTHS Hx Alcohol Use: No Hx Substance Use: No substance use type: does not use Testing Laboratory Results [facility] 04/17/19 WBC: 10.36 H/H: 10.3 L/ 33.6 L PLATELETS: 648 H SODIUM: 141 POTASSIUM: 4.2 CHLORIDE: 104 CO2: 27 BUN: 15 CREATININE: 0.4 L GLUCOSE: 116 PT: 25.8 H (04/15/19) INR: 2.35 H (04/15/19) Electrocardiogram Date: 04/22/19 Findings: + NSR @ (74) Sinus rhythm with premature ventricular contractions. Low voltage Previous inferior infarction. Consider previous posterior infarction. No previous EKG for comparison. Tracing not able to be found by facility. Will repeat EKG morning of surgery. Chest X-Ray Date: 04/22/19 Results: The heart is normal in size and configuration. The mediastinum is unremarkable. There is a mild linear airspace opacity in the left upper lobe. No acute osseous abnormality is visualized. No specific evidence of active tuberculosis is present. Conclusion: Mild left upper lobe linear airspace opacity. The differential primarily includes subsegmental atelectasis or scar. Echocardiogram Date: 11/05/13 EF: 50-55% Aortic valve sclerosis mild, without significant aortic valvular stenosis. The left ventricle is normal in size. There is apical akinesis. The right ventricular systolic function is normal. Mild to moderate aortic regurgitation. There is trace mitral regurgitation.
[~2019-04-25 10:17] MED LIST changes: +ACETAMINOPHEN 500 MG TAB PO SCH; -AMLO2.5T2 PO; -AMT24 PO; -ASCA500 PO; -BACLOFEN PO; -CETI10TA84 PO; -CHOL4POW6 PO; -CLTP PO; -CRAN1CAP14 PO; -CYM/60 PO; -DOCUENE; -DONE10TA12 PO; -DOXY100C76 PO; -DTR5 PO; -FURO20TA PO; -GABA-113 PO; -LIDO5DIS10 TOP; +LR 15ML/HR IV SCH; +LR 60ML/HR IV SCH; -METO25TA56 PO; -NYST100098 TOP; -OXYC-90 PO; -OXYC10TA2 PO; -PRAV20TA PO; -WARF4TAB PO
[2019-04-25] MEDS ORDERED: VANCOMYCIN HCL 1,250 MG in SODIUM CHLORIDE 0.9% 250 ML IV SCH ×2 (10:30→22:00)
[2019-04-25] MEDS ORDERED: CEFAZOLIN 2000MG 2,000 MG/15 ML SYR IV ONE (11:04)
--- NOTE | 2019-04-25 11:04 | History & Physical Bridge Note ---
Date of Service April 25, 2019 History & Physical Bridge Note I have examined the patient, reviewed the History & Physical and in the interval since the performance of the History & Physical I have noted the following changes of clinical significance: no changes noted
[2019-04-25 11:47] LABS: INR 1.1 (0.9-1.1); Partial Thromboplastin Time 28.2 Seconds (21.0-31.0); Prothrombin Time 11.4 Seconds (9.0-12.0)
[2019-04-25] MEDS ORDERED: MIDAZOLAM HCL 1 MG/ML 2ML VIAL ONE (11:53)
[2019-04-25] MEDS ORDERED: fentaNYL citrate 100 MCG/2 ML VIAL ONE (11:53)
[2019-04-25] MEDS ORDERED: BUPIVACAINE/EPINEPHRINE 0.5% MPF 1:200,000 30 ML VIAL ONE (12:55)
[2019-04-25] MEDS ORDERED: BACITRACIN INJ 50,000 UNIT VIAL ONE (12:55)
[2019-04-25] MEDS ORDERED: ROPIVACAINE 0.5% 5 MG/ML 30 ML VIAL ONE (13:06)
[2019-04-25] MEDS ORDERED: DEXAMETHASONE SOD INJ 4 MG/ML VIAL ONE (13:45)
[2019-04-25] MEDS ORDERED: ONDANSETRON INJ 2 MG/ML 2 ML VIAL ONE (13:45)
[2019-04-25] MEDS ORDERED: CEFAZOLIN 250 MG/ML 1 GM VIAL ONE (13:45)
[2019-04-25] MEDS ORDERED: LIDOCAINE 2% 20 MG/ML 5 ML SYR IV ONE (13:45)
[2019-04-25] MEDS ORDERED: PROPOFOL IV EMULSION 10 MG/ML 20 ML VIAL IV ONE (13:45)
--- NOTE | 2019-04-25 14:41 | Post Operative Brief Note ---
Immediate Post Op Note v1 Date of Surgery April 25, 2019 Pre & Post Diagnosis Operation Date: 04/25/19 12:30 Pre-Op Diagnosis: Chronic Osteomylitis Right Lower Extremity Post-Op Diagnosis: Chronic Osteomylitis Right Lower Extremity Procedure Operation Date: 04/25/19 12:30 Actual Procedures p Right Leg Above the Knee Amputation(Right) - Cr Lopez MD Surgeon Cr Lopez MD Private Sector Executive Madeline, PAC Estimated Blood Loss 50 Findings Consistent with Post-Op Diagnosis Fluids 850 cc Specimens Right Leg Anesthesia Type General Regional Complications none Disposition Accompanied Patient To Recovery: Yes Disposition: Recovery Room
[2019-04-25] MEDS ORDERED: fentaNYL citrate 100 MCG/2 ML VIAL IV PRN (14:50)
[2019-04-25] MEDS ORDERED: ATROPINE SULFATE 0.1 MG/ML 10ML SYR IV PRN (14:50)
[2019-04-25] MEDS ORDERED: NALOXONE HCL 0.4 MG/1 ML VIAL/CARP IV PRN ×2 (14:50→16:01)
[2019-04-25] MEDS ORDERED: LABETALOL HCL IV 5 MG/ML 20ML IV PRN (14:50)
[2019-04-25] MEDS ORDERED: PROMETHAZINE HCL 12.5 MG in SODIUM CHLORIDE 0.9% 50 ML IV PRN (14:50)
[2019-04-25] MEDS ORDERED: ONDANSETRON INJ 2 MG/ML 2 ML VIAL IV PRN ×2 (14:50→16:01)
[2019-04-25] MEDS ORDERED: ePHEDrine sulfate 50 MG/ML AMP IV PRN (14:50)
[2019-04-25] MEDS ORDERED: FLUMAZENIL 0.1 MG/1 ML 10 ML VIAL IV PRN (14:50)
--- NOTE | 2019-04-25 15:08 | Anesthesiology Progress Note ---
Date of Service April 25, 2019 Anesthesia Post Procedure Vital Signs Vital Signs: Temp Pulse Pulse Resp BP Pulse Ox 04/25/19 15:00 63 14 128/78 98 04/25/19 14:50 61 15 120/74 100 04/25/19 14:43 36.0 C L 69 12 136/79 99 04/25/19 10:44 36.6 C 72 18 117/71 93 Transfer of Care Handoff Completed per policy Notes Mental Status: alert / awake / arousable Patient Amnestic to Procedure: Yes Nausea / Vomiting: adequately controlled Pain: adequately controlled Airway Patency, RR, SpO2: stable & adequate BP & HR: stable & adequate Hydration State: stable & adequate Anesthetic Complications: no major complications apparent
[2019-04-25] MEDS ORDERED: VANCOMYCIN CONSULT ACTIVE PRN (16:01)
[2019-04-25] MEDS ORDERED: BISACODYL 10 MG SUPP PR PRN ×2 (16:01)
[2019-04-25] MEDS ORDERED: OXYCODONE HCL IR 5 MG TAB (IMMEDIATE RELEASE) PO PRN (16:01)
[2019-04-25] MEDS ORDERED: SOD PHOSPHATE/SOD BIPHOSPHATE ENEMA 132 ML BTL PR PRN (16:01)
[2019-04-25] MEDS ORDERED: ALUMINUM/MAGNESIUM SUSP 30 ML UDC PO PRN (16:01)
[2019-04-25] MEDS ORDERED: ACETAMINOPHEN 325 MG TAB PO PRN (16:01)
[2019-04-25] MEDS ORDERED: METOCLOPRAMIDE HCL INJ 5 MG/ML 2 ML VIAL IV PRN (16:01)
[2019-04-25] MEDS ORDERED: MAGNESIUM HYDROXIDE SUSP 30 ML UDC PO PRN ×2 (16:01)
[2019-04-25] MEDS ORDERED: CHOLESTYRAMINE LIGHT 4 GM PKT PO PRN (16:01)
[2019-04-25] MEDS: SODIUM CHLORIDE 0.9% 1000ML 1,000 ML IV SCH (17:08)
[2019-04-25] MEDS: FERROUS GLUCONATE 324 MG TAB PO SCH (18:00)
[2019-04-25] MEDS: GABAPENTIN 300 MG CAP PO SCH ×2 (18:00→20:29)
[2019-04-25] MEDS: KETOROLAC TROMETHAMINE 15 MG/ML VIAL IV SCH (18:00)
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
[2019-04-25] MEDS: NYSTATIN POWDER 15GM BTL EXT SCH (19:44)
[2019-04-25] MEDS: BUTT PASTE (ZINC OXIDE 16%) 171 APPLN/57 GM JAR TOP SCH (19:44)
[2019-04-25] MEDS: OXYCODONE HCL IR 5 MG TAB (IMMEDIATE RELEASE) PO PRN (20:21)
[2019-04-25] MEDS: LUBIPROSTONE 8 MCG CAP PO SCH (20:25)
[2019-04-25] MEDS: METOPROLOL TARTRATE 25 MG TAB PO SCH (20:25)
[2019-04-25] MEDS: DOCUSATE SODIUM 100 MG CAP PO SCH (20:27)
[2019-04-25] MEDS: BACLOFEN 20 MG TAB PO SCH (20:28)
[2019-04-25] MEDS: SENNA 8.6 MG TAB PO SCH (20:29)
[2019-04-25] MEDS ORDERED: DOCUSATE SODIUM 100 MG CAP PO SCH (21:00)
[2019-04-25] MEDS ORDERED: CIPROFLOXACIN 500 MG TAB PO SCH (21:00)
[2019-04-25] MEDS ORDERED: WARFARIN SOD 6 MG TAB PO STA (21:07)
[2019-04-25] MEDS: HYDROmorphone INJ 0.5 MG/0.5 ML SYR IV PRN (21:24)
[2019-04-25] MEDS: CEFAZOLIN 2000MG 2,000 MG/15 ML SYR IV SCH (21:30)
--- NOTE | 2019-04-26 | Operative Report ---
DATE OF OPERATION: 04/25/2019 SURGEON: Cr Lopez MD MACHINE STAPLER: MATT Simpson PREOPERATIVE DIAGNOSIS: Right chronic lower extremity nonhealing wounds with underlying osteomyelitis of the distal femur and proximal tibia. POSTOPERATIVE DIAGNOSIS: Right chronic lower extremity nonhealing wounds with underlying osteomyelitis of the distal femur and proximal tibia. PROCEDURE PERFORMED: Right above-knee amputation. COMPLICATIONS: None. ESTIMATED BLOOD LOSS: 50 mL. FLUID REPLACEMENT: 850 mL crystalloid fluid replacement. TOURNIQUET TIME: 17 minutes at 300 mmHg. ANESTHESIA: General with femoral nerve block. SPECIMENS: Right leg sent for pathology. OPERATIVE INDICATIONS: The patient is a 68-year-old gentleman. He has been a long-term T8 paraplegic for the past 41 years. Over the past several years, he developed several ulcers on his lower extremities which have kind of waxed and waned in severity. The one on his right leg has never healed for several years. He has been through multiple courses of antibiotics and currently on suppressive antibiotics with underlying osteomyelitis diagnosed by MRI scan. He has had chronic draining sinus tracts. Operative and nonoperative treatments were explained to the patient. He elected to proceed with right above-knee amputation. He was made fully aware this is no guarantee that he was going to have wound healing. OPERATIVE PROCEDURE: The patient was taken to the operating room, identified and placed on the operative table in supine position. All contact areas were appropriately padded. IV antibiotics were provided by the anesthesia team. The patient got both vancomycin and the Ancef due to his history of MRSA infection in the past. The right leg was then scrubbed with Hibiclens and then prepped with ChloraPrep and draped in the usual sterile fashion. The right leg was elevated and exsanguinated. The tourniquet was placed at 300 mmHg. I did measure up the leg to make the bone cut about 15 cm above the knee joint as he had some soft tissue ulcers and wanted to maximize his chance of healing and limit the ulcers in the flaps. There was one residual slightly scabbed area which we had to leave in the posterior flap. Fish mouth incision was made anterior and posterior with limbs distally about 8 cm in length. Sharp dissection was carried through the subcutaneous tissue directly through the fascia anteriorly directly down to the bone. There was really no muscle to mention. Everything was fatty tissue. I then elevated the soft tissue envelope anteriorly back to the area of the bone cut. I made the posterior incision completely through the tissues directly down to bone as well. I then skeletonized this back to the bone cut as well. The bone was then cut at approximately 15 cm proximal to the knee joint. I then beveled the anterior bone. I then identified the sciatic nerve, suture ligated it, and then cut it sharply with a knife. The femoral artery and vein were identified and double suture ligated and cut and allowed to retract. I then did thin out the posterior soft tissue envelope slightly. The tourniquet was then let down for a tourniquet time of 17 minutes. Hemostasis was assured using electrocautery. There was not much bleeding. The wound was irrigated again. The fascia was then closed with 0 Vicryl suture in a [id number] fashion bringing the anterior fascia to the posterior fascia. The skin was then closed with 3-0 nylon suture in a simple fashion. The leg was then cleaned and dried and a sterile dressing of Xeroform, 4 x 4's, sterile Kerlix wrap, and an Antoine bandage were applied. The patient was then brought out of general anesthesia and transferred to the recovery room in stable condition. The patient tolerated the procedure well with no complications. All needle and sponge counts were correct at the end of the operation. I attest to the content of the Intraoperative Record and any orders documented therein. Any exception s are noted below.
[2019-04-26] MEDS: KETOROLAC TROMETHAMINE 15 MG/ML VIAL IV SCH ×3 (00:39→12:51)
[2019-04-26] MEDS: OXYCODONE HCL IR 5 MG TAB (IMMEDIATE RELEASE) PO PRN ×3 (02:23→17:08)
[2019-04-26] MEDS: SODIUM CHLORIDE 0.9% 1000ML 1,000 ML IV SCH (02:27)
[2019-04-26] MEDS: CEFAZOLIN 2000MG 2,000 MG/15 ML SYR IV SCH (06:16)
[2019-04-26 07:29] LABS: Hematocrit (blood only) 29.1 % (42-52); Hemoglobin 9.1 g/dL (14.0-18.0); Mean Corpuscular Hgb Conc 31.3 g/dL (32-36); Mean Corpuscular Volume 80.2 fL (80-100); Mean Platelet Volume 8.3 fL (7.4-10.4); Platelet Count 506 K/uL (130-400); RDW Coefficient of Variation 15.4 % (11.5-14.5); Red Blood Count 3.63 M/uL (4.7-6.1); White Blood Count 9.61 K/uL (4.8-10.8)
[2019-04-26 08:00] LABS: BUN Creatinine Ratio 52.9 (10-20); Blood Urea Nitrogen 17 mg/dl (7-18); Calcium 8.1 mg/dl (8.5-10.1); Carbon Dioxide 26 mmol/L (21-32); Chloride 108 mmol/L (98-107); Creatinine Clr Calc Pharmacy 213.8 ml/min; Est GFR (African American) > 150.0; Est GFR (Non-African American) 133.8; Glucose 107 mg/dl (70-99); Potassium 3.7 mmol/L (3.5-5.1); Sodium 139 mmol/L (136-145)
[2019-04-26] MEDS: FERROUS GLUCONATE 324 MG TAB PO SCH ×2 (08:40→17:09)
[2019-04-26] MEDS: AMLODIPINE BESYLATE 5 MG TAB PO SCH (08:40)
[2019-04-26] MEDS: PRAVASTATIN SOD 20 MG TAB PO SCH (08:40)
[2019-04-26] MEDS: GABAPENTIN 300 MG CAP PO SCH ×4 (08:41→20:28)
[2019-04-26] MEDS: BACLOFEN 20 MG TAB PO SCH ×3 (08:41→20:27)
[2019-04-26] MEDS: ASCORBIC ACID 500 MG TAB PO SCH (08:42)
[2019-04-26] MEDS: METOPROLOL TARTRATE 25 MG TAB PO SCH ×2 (08:42→20:32)
[2019-04-26] MEDS: LUBIPROSTONE 8 MCG CAP PO SCH ×2 (08:43→20:27)
[2019-04-26] MEDS: FUROSEMIDE 20 MG TAB PO SCH (08:43)
[2019-04-26] MEDS: CALCIUM 600MG + VIT D 400 IU TAB PO SCH ×3 (08:43→20:28)
[2019-04-26] MEDS: LACTOBACILLUS ACIDOPHILUS (FLORANEX) TAB PO SCH (08:43)
[2019-04-26] MEDS: DOCUSATE SODIUM 100 MG CAP PO SCH ×2 (08:43→20:28)
[2019-04-26] MEDS: DULOXETINE HCL 60 MG CAP PO SCH (08:43)
[2019-04-26] MEDS: MENTHOL-ZINC OXIDE 360 APPLN/120 GM TUBE EXT SCH (08:43)
[2019-04-26] MEDS: NYSTATIN POWDER 15GM BTL EXT SCH ×2 (08:43→20:28)
[2019-04-26] MEDS: BUTT PASTE (ZINC OXIDE 16%) 171 APPLN/57 GM JAR TOP SCH ×2 (08:44→20:29)
[2019-04-26] MEDS: MULTIVITAMIN TAB PO SCH (08:50)
[2019-04-26] MEDS ORDERED: MULTIVITAMIN TAB PO SCH (09:00)
--- NOTE | 2019-04-26 09:07 | Progress Note ---
DATE: 04/26/2019 SUBJECTIVE: A 68-year-old T8 paraplegic now postop day 1 from a right above-knee amputation for chronic infection. He is doing well this morning. Not having any pain. He certainly looks more awake, alert and appropriate than I have seen him in quite some time. OBJECTIVE: VITAL SIGNS: Temperature 37.2. Vital signs stable. GENERAL: Physical examination shows a pleasant, middle-aged male. He is sitting up in bed, looks pretty comfortable. EXTREMITIES: Examination of the right leg reveals the dressing to be intact and in place. No drainage. He does have very large decubiti ulcers which are fairly clean that we noticed on transfer yesterday. LABORATORY DATA: Hemoglobin 9.1. Hematocrit 29.1. Electrolytes are stable. ASSESSMENT: A 68-year-old T8 paraplegic postop day 1 from right above-knee amputation for infection. He looks to be doing well. He is anemic without symptoms. He has got multiple decubiti ulcers which need to be addressed. PLAN: 1. DVT prophylaxis including thigh-high TEDs, SCDs, and he is back on Coumadin. He has never had a blood clot. He is just on prophylactic anticoagulation, so we are going to hold Lovenox for now to limit bleeding and just getting therapy to back on his Coumadin. 2. PT/OT. Instructions on transfers. 3. Medical management as per the medicine service. 4. Large decubiti ulcers. We have consulted the skin care and wound care people. I really think we need to address these before discharge. 5. Disposition: He is planning to be discharged back to [place]. We need to get treatment of his wounds before discharge. 6. Chronic infections. The infection is gone now. We will treat him with this 24 hours of antibiotics and he can stop.
--- NOTE | 2019-04-26 11:35 | Anesthesiology Progress Note ---
Date of Service April 26, 2019 Anesthesia Post Procedure Vital Signs Vital Signs: Temp Pulse Pulse Resp BP BP Pulse Ox 04/26/19 07:12 37.2 C 83 19 154/79 H 90 04/26/19 03:40 36.9 C 77 18 111/61 94 04/25/19 22:56 37 C 70 16 107/66 91 04/25/19 22:02 36.9 C 72 16 109/72 92 04/25/19 18:47 36.8 C 76 18 137/68 95 04/25/19 17:43 36.5 C 64 18 147/80 H 93 04/25/19 16:49 36.4 C L 18 139/77 95 04/25/19 15:45 04/25/19 15:10 36.3 C L 59 L 14 125/68 95 04/25/19 15:00 63 14 128/78 98 04/25/19 14:50 61 15 120/74 100 04/25/19 14:43 36.0 C L 69 12 136/79 99 Pulse Ox 04/26/19 07:12 04/26/19 03:40 04/25/19 22:56 04/25/19 22:02 04/25/19 18:47 04/25/19 17:43 04/25/19 16:49 04/25/19 15:45 92 04/25/19 15:10 04/25/19 15:00 04/25/19 14:50 04/25/19 14:43 Pain Intensity Upper Back: Pain Intensity: 5 Notes Mental Status: see notes below (Pt sleeping at the time of visit) Nausea / Vomiting: adequately controlled Pain: adequately controlled Airway Patency, RR, SpO2: stable & adequate BP & HR: stable & adequate Hydration State: stable & adequate Anesthetic Complications: no major complications apparent
[2019-04-26] MEDS ORDERED: WARFARIN SOD 4 MG TAB PO SCH (16:00)
[2019-04-26 18:10] LABS: Hematocrit (blood only) 29.4 % (42-52); Hemoglobin 9.1 g/dL (14.0-18.0)
--- NOTE | 2019-04-26 18:14 | Hospitalist Progress Note ---
Date of Service April 26, 2019 Assessment & Plan (1) Above knee amputation of right lower extremity: -POD #1, status post right AKA by Dr. Lopez -Amputation performed secondary to chronic wounds and osteomyelitis of the right lower extremity -Placed on IV vancomycin and IV Ancef by orthopedics -stopping 24 hours post op -EBL 50 cc Pain uncontrolled with oxycodone, recent Toradol (which cannot be continued in setting of warfarin/Lovenox), gabapentin and Baclofen. Will add some Valium thi s evening for muscle relaxation effect to shoulder and nexk muscles causing the pain. Cont other agents but separate this from narcotics by at least two hours. 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 Wound care is consulted. (4) HTN (hypertension): -BP controlled, continue amlodipine, furosemide, metoprolol (5) Dyslipidemia: -Continue statin (6) DVT prophylaxis: warfarin/Lovenox starting tonight Full Code Dispo-cont hospitalization. Thank you for this consultation. We will follow the patient with you during their hospital stay. You [facility] via pager @ [phone]. Alexandria Kim, DO [facility] Subjective Other acute issues. Postop day 1 and doing well. States that his pain is controlled in his legs but he has more pain in his shoulder muscles from trying to reposition. Discussed with the nurse when he is getting and decided on a plan, see below. He is denying nausea and is eating solid food without issue. He has a chronic indwelling Hernandez for neurogenic bladder he otherwise denies any other acute issues. Review of Systems Review of Systems: All systems reviewed & are unremarkable except as noted in HPI & below Physical Exam Physical Exam: CONSTITUTIONAL: WNWD, vitals as above, generally well- appearing EYES: normal conjunctivae, no scleral icterus, no fundoscopic abnormality ENT: MMM RESPIRATORY: clear to auscultation bilaterally, no crackles, rales or wheezes, normal respiratory effort CARDIOVASCULAR: regular rate and rhythm, S1 and 2 heard without murmurs, gallops or rubs, no JVD, no peripheral edema GASTROINTESTINAL: normal bowel sounds, soft, nontender, nondistended MUSCULOSKELETAL: strength intact throughout, s/p R AKA, head is normocephalic and atraumatic SKIN: warm and dry, buttock wounds, severe-not visualized on my exam NEUROLOGIC: no facial palsy, no dysarthria. CN 2-12 grossly intact, no gross focal deficits. PSYCHIATRIC: alert cooperative and oriented to person, place and time. Results & Data Vital Signs (Past 12 Hours) Vital Signs Temp Pulse Resp BP Pulse Ox Pulse Ox 04/26/19 15:02 36.3 C L 66 17 99/64 L 93 04/26/19 08:20 97 04/26/19 07:12 37.2 C 83 19 154/79 H 90 Laboratory Results Short CBC 04/26/19 04/26/19 Range/Units 06:48 17:53 WBC 9.61 (4.8-10.8) K/uL Hgb 9.1 L 9.1 L (14.0-18.0) g/dL Hct 29.1 L 29.4 L (42-52) % Plt Count 506 H (130-400) K/uL BMP 04/26/19 06:48 Sodium 139 Potassium 3.7 Chloride 108 H Carbon Dioxide 26 BUN 17 Creatinine 0.32 L Glucose 107 H Calcium 8.1 L Medications Administered Current Inpatient Medications Acetaminophen (Tylenol) 650 mg PO Q6H PRN PRN Reason: Pain Stop: 05/25/19 16:00 Al Hydrox/Mg Hydrox/Simethicone (Maalox) 15 ml PO Q4H PRN PRN Reason: Heartburn Stop: 05/25/19 16:00 Amlodipine Besylate (Norvasc) 2.5 mg PO DAILY [facility] Stop: 05/26/19 08:59 Last Admin: 04/26/19 08:40 Dose: 2.5 mg Documented by: Ascorbic Acid (Vitamin C) 500 mg PO DAILY [facility] Stop: 05/26/19 08:59 Last Admin: 04/26/19 08:42 Dose: 500 mg Documented by: Baclofen (Lioresal) 20 mg PO TID [facility] Stop: 05/25/19 20:59 Last Admin: 04/26/19 12:51 Dose: 20 mg Documented by: Bisacodyl (Dulcolax) 10 mg [place] DAILY PRN PRN Reason: Constipation Stop: 05/25/19 16:00 Last Admin: 04/26/19 16:37 Dose: 10 mg Documented by: Calamine/Phenol (Calmoseptine) 1 appln EXT DAILY [facility] Stop: 05/26/19 08:59 Last Admin: 04/26/19 08:43 Dose: 1 appln Documented by: Cholestyramine Resin (Questran) 4 gm PO BID PRN PRN Reason: Constipation Stop: 05/25/19 16:00 Diazepam (Valium) 2 mg PO Q8H PRN PRN Reason: muscle spasms Stop: 05/26/19 17:55 Docusate Sodium (Colace) 100 mg PO BID [facility] Stop: 05/25/19 20:59 Last Admin: 04/26/19 08:43 Dose: 100 mg Documented by: Duloxetine HCl (Cymbalta) 60 mg PO DAILY [facility] Stop: 05/26/19 08:59 Last Admin: 04/26/19 08:43 Dose: 60 mg Documented by: Ferrous Gluconate (Ferrous Gluconate) 324 mg PO BIDM [facility] Stop: 05/25/19 16:59 Last Admin: 04/26/19 17:09 Dose: 324 mg Documented by: Furosemide (Lasix) 20 mg PO DAILY [facility] Stop: 05/26/19 08:59 Last Admin: 04/26/19 08:43 Dose: 20 mg Documented by: Gabapentin (Neurontin) 600 mg PO QID [facility]; Protocol Stop: 05/25/19 16:59 Last Admin: 04/26/19 17:09 Dose: 600 mg Documented by: Hydromorphone HCl (Dilaudid) 0.5 mg IV Q4H PRN PRN Reason: Pain Stop: 05/09/19 16:00 Last Admin: 04/25/19 21:24 Dose: 0.5 mg Documented by: Lactobacillus Acidophilus (Floranex) 4 tab PO DAILY [facility] Stop: 05/26/19 08:59 Last Admin: 04/26/19 08:43 Dose: 4 tab Documented by: Lubiprostone (Amitiza) 24 mcg PO BID [facility] Stop: 05/25/19 20:59 Last Admin: 04/26/19 08:43 Dose: 24 mcg Documented by: Magnesium Hydroxide (Milk Of Magnesia) 30 ml PO Q6H PRN PRN Reason: Constipation Stop: 05/25/19 16:00 Metoclopramide HCl (Reglan) 10 mg IV Q6H PRN PRN Reason: Nausea And Vomiting Stop: 05/25/19 16:00 Metoprolol Tartrate (Lopressor) 12.5 mg PO BID [facility] Stop: 05/25/19 20:59 Last Admin: 04/26/19 08:42 Dose: 12.5 mg Documented by: Multivitamins (Multivitamin Tab) 1 tab PO DAILY [facility] Stop: 05/26/19 08:59 Last Admin: 04/26/19 08:50 Dose: 1 tab Documented by: Multivitamins/Minerals (Caltrate Plus) 1 tab PO TID [facility]; Protocol Stop: 05/26/19 08:59 Last Admin: 04/26/19 12:51 Dose: 1 tab Documented by: Naloxone HCl (Narcan) 0.1 mg IV Q5M PRN PRN Reason: Oversedation/Resp Depression Stop: 05/25/19 16:00 Nystatin (Mycostatin) 1 appln EXT BID [facility] Stop: 05/25/19 20:59 Last Admin: 04/26/19 08:43 Dose: 1 appln Documented by: Ondansetron HCl (Zofran) 4 mg IV Q6H PRN PRN Reason: Nausea And Vomiting Stop: 05/25/19 16:00 Oxycodone HCl (Roxicodone Immediate Rel) 5 - 10 mg PO Q6H PRN PRN Reason: Pain Stop: 05/09/19 16:00 Last Admin: 04/26/19 17:08 Dose: 10 mg Documented by: Petrolatum (Butt Paste) 1 appln TOP BID [facility] Stop: 05/25/19 20:59 Last Admin: 04/26/19 08:44 Dose: 1 appln Documented by: Pravastatin Sodium (Pravachol) 20 mg PO DAILY [facility] Stop: 05/26/19 08:59 Last Admin: 04/26/19 08:40 Dose: 20 mg Documented by: Sennosides (Senokot) 17.2 mg PO HS [facility] Stop: 05/25/19 20:59 Last Admin: 04/25/19 20:29 Dose: 17.2 mg Documented by: Sodium Biphosphate/Sodium Phosphate (Fleet Enema) 132 ml TN HS PRN PRN Reason: Constipation Stop: 05/25/19 16:00
[2019-04-26] MEDS: diazePAM 2 MG TABLET PO PRN (19:45)
[2019-04-26] MEDS: SENNA 8.6 MG TAB PO SCH (20:28)
[2019-04-27] MEDS: OXYCODONE HCL IR 5 MG TAB (IMMEDIATE RELEASE) PO PRN ×2 (00:59→11:37)
[2019-04-27] MEDS: HYDROmorphone INJ 0.5 MG/0.5 ML SYR IV PRN ×3 (01:51→19:07)
[2019-04-27 06:49] LABS: Hematocrit (blood only) 29.6 % (42-52); Hemoglobin 9.2 g/dL (14.0-18.0); Mean Corpuscular Hgb Conc 31.1 g/dL (32-36); Mean Corpuscular Volume 80.4 fL (80-100); Platelet Count 476 K/uL (130-400); RDW Coefficient of Variation 15.5 % (11.5-14.5); RDW Standard Deviation 45.7 fL (36.4-46.3); Red Blood Count 3.68 M/uL (4.7-6.1); White Blood Count 8.76 K/uL (4.8-10.8)
[2019-04-27 07:05] LABS: INR 1.8 (0.9-1.1); Prothrombin Time 17.7 Seconds (9.0-12.0)
[2019-04-27 07:15] LABS: BUN Creatinine Ratio 43.1 (10-20); Blood Urea Nitrogen 12 mg/dl (7-18); Calcium 8.5 mg/dl (8.5-10.1); Carbon Dioxide 29 mmol/L (21-32); Chloride 107 mmol/L (98-107); Creatinine Clr Calc Pharmacy 235.9 ml/min; Est GFR (African American) > 150.0; Est GFR (Non-African American) 139.3; Glucose 101 mg/dl (70-99); Potassium 3.8 mmol/L (3.5-5.1); Sodium 140 mmol/L (136-145)
[2019-04-27] MEDS: FERROUS GLUCONATE 324 MG TAB PO SCH ×2 (07:52→16:20)
--- NOTE | 2019-04-27 08:52 | Progress Note ---
DATE: 04/27/2019 SUBJECTIVE: A 68-year-old gentleman postop day 2 from a right above-knee amputation for chronic infection. He is doing okay. Really no leg pain. No new complaints. OBJECTIVE: VITAL SIGNS: Temperature 36.8. Vital signs stable. EXTREMITIES: Reveal the dressing to be clean, dry and intact. No detectable swelling. No detectable drainage. LABORATORIES: Hemoglobin stable at 9.2. ASSESSMENT: A 68-year-old gentleman 2 days out from a right above-knee amputation for chronic infection of his lower extremity. He seems to be doing okay. Big issue is just his decubiti ulcers, which need to be dressed. PLAN: 1. DVT prophylaxis including thigh-high TEDs, SCDs. He is back on his Coumadin. INR is 1.8. We will continue to adjust Coumadin prophylaxis. Avoid Lovenox to limit hemorrhage. 2. PT/OT. No real new treatment. Just transfers. He is unable to weightbear due to his paralysis. 3. Medical management as per the medicine service. 4. Decubiti treatment. Waiting for wound care. 5. Disposition: We plan to send him back to [facility] once his decubiti wounds have been dressed appropriately.
[2019-04-27] MEDS: BACLOFEN 20 MG TAB PO SCH ×3 (09:03→21:54)
[2019-04-27] MEDS: FUROSEMIDE 20 MG TAB PO SCH (09:03)
[2019-04-27] MEDS: PRAVASTATIN SOD 20 MG TAB PO SCH (09:04)
[2019-04-27] MEDS: METOPROLOL TARTRATE 25 MG TAB PO SCH ×2 (09:04→21:57)
[2019-04-27] MEDS: AMLODIPINE BESYLATE 5 MG TAB PO SCH (09:04)
[2019-04-27] MEDS: MULTIVITAMIN TAB PO SCH (09:04)
[2019-04-27] MEDS: GABAPENTIN 300 MG CAP PO SCH ×4 (09:04→21:53)
[2019-04-27] MEDS: diazePAM 2 MG TABLET PO PRN (09:04)
[2019-04-27] MEDS: LUBIPROSTONE 8 MCG CAP PO SCH ×2 (09:05→21:54)
[2019-04-27] MEDS: DULOXETINE HCL 60 MG CAP PO SCH (09:05)
[2019-04-27] MEDS: LACTOBACILLUS ACIDOPHILUS (FLORANEX) TAB PO SCH (09:05)
[2019-04-27] MEDS: CALCIUM 600MG + VIT D 400 IU TAB PO SCH ×3 (09:05→21:52)
[2019-04-27] MEDS: DOCUSATE SODIUM 100 MG CAP PO SCH ×2 (09:05→21:52)
[2019-04-27] MEDS: MENTHOL-ZINC OXIDE 360 APPLN/120 GM TUBE EXT SCH (09:09)
[2019-04-27] MEDS: NYSTATIN POWDER 15GM BTL EXT SCH ×2 (09:10→21:54)
[2019-04-27] MEDS: BUTT PASTE (ZINC OXIDE 16%) 171 APPLN/57 GM JAR TOP SCH ×2 (09:10→21:55)
[2019-04-27] MEDS: ASCORBIC ACID 500 MG TAB PO SCH (09:11)
[2019-04-27] MEDS ORDERED: WARFARIN SOD 4 MG TAB PO ONE (16:00)
--- NOTE | 2019-04-27 18:12 | Hospitalist Progress Note ---
Date of Service April 27, 2019 Assessment & Plan (1) Above knee amputation of right lower extremity: -POD #2, status post right AKA by Dr. Lopez -Amputation performed secondary to chronic wounds and osteomyelitis of the right lower extremity -Pain is controlled with oxycodone and pain in his upper shoulder area is improved with the Valium. -He continues on Coumadin for chronic prophylaxis of DVT, although, has never actually had a DVT. This is a correction to the prior record yesterday. At this time Lovenox bridging is not indicated and has been stopped postoperatively for increased risk of bleeding. This was discussed with Dr. Laguna, anticoagulation director of [facility] as well as Dr. Lopez -a message was sent to PCP regarding why this plan was changed. (2) Decubitus ulcer: severe on buttocks. Wound care is consulted. (3) HTN (hypertension): -BP controlled, continue amlodipine, furosemide, metoprolol (4) Dyslipidemia: -Continue statin (5) DVT prophylaxis: warfarin Full Code Dispo-cont hospitalization. Thank you for this consultation. We will follow the patient with you during their hospital stay. You can reach a member of the [facility] Hospitalist Team 11/06 via pager @ [phone]. Alexandria Kim, DO [facility] Hospitalist Subjective Doing well postop, pain is controlled. Of note the patient states he has never had a DVT but in fact is on Coumadin for many years simply for prophylaxis as a paraplegic. With this there is no indication to use Lovenox bridging, and this is been stopped by Dr. Lopez as he is at risk for increased bleeding postoperatively. I discussed the indications of this with the anticoagulation director, Dr. Soraida Laguna and with Dr. Lopez. The patient will continue on warfarin for now and will continue the discussion on the chronic need for warfarin after discharge with his primary care doctor. Review of Systems Review of Systems: All systems reviewed & are unremarkable except as noted in HPI & below Physical Exam Physical Exam: CONSTITUTIONAL: WNWD, vitals as above, generally well- appearing EYES: normal conjunctivae, no scleral icterus ENT: MMM RESPIRATORY: clear to auscultation bilaterally, no crackles, rales or wheezes, normal respiratory effort CARDIOVASCULAR: regular rate and rhythm, S1 and 2 heard without murmurs, howard ps or rubs, no JVD, no peripheral edema GASTROINTESTINAL: normal bowel sounds, soft, nontender, nondistended MUSCULOSKELETAL: strength intact throughout, s/p R AKA with surgical dressing in place, head is normocephalic and atraumatic SKIN: warm and dry, buttock wounds, severe-not visualized on my exam NEUROLOGIC: no facial palsy, no dysarthria. CN 2-12 grossly intact, no gross focal deficits. PSYCHIATRIC: alert cooperative and oriented to person, place and time. Results & Data Vital Signs (Past 12 Hours) Vital Signs Temp Pulse Pulse Resp BP BP Pulse Ox 04/27/19 14:43 70 17 106/62 93 04/27/19 06:58 36.8 C 66 15 126/69 94 Laboratory Results Short CBC 04/27/19 Range/Units 06:27 WBC 8.76 (4.8-10.8) K/uL Hgb 9.2 L (14.0-18.0) g/dL Hct 29.6 L (42-52) % Plt Count 476 H (130-400) K/uL BMP 04/27/19 06:27 Sodium 140 Potassium 3.8 Chloride 107 Carbon Dioxide 29 BUN 12 Creatinine 0.29 L Glucose 101 H Calcium 8.5 Medications Administered Current Inpatient Medications Acetaminophen (Tylenol) 650 mg PO Q6H PRN PRN Reason: Pain Stop: 05/25/19 16:00 Al Hydrox/Mg Hydrox/Simethicone (Maalox) 15 ml PO Q4H PRN PRN Reason: Heartburn Stop: 05/25/19 16:00 Amlodipine Besylate (Norvasc) 2.5 mg PO DAILY [facility] Stop: 05/26/19 08:59 Last Admin: 04/27/19 09:04 Dose: 2.5 mg Documented by: Ascorbic Acid (Vitamin C) 500 mg PO DAILY [facility] Stop: 05/26/19 08:59 Last Admin: 04/27/19 09:11 Dose: 500 mg Documented by: Baclofen (Lioresal) 20 mg PO TID [facility] Stop: 05/25/19 20:59 Last Admin: 04/27/19 13:50 Dose: 20 mg Documented by: Bisacodyl (Dulcolax) 10 mg [place] DAILY PRN PRN Reason: Constipation Stop: 05/25/19 16:00 Last Admin: 04/26/19 16:37 Dose: 10 mg Documented by: Calamine/Phenol (Calmoseptine) 1 appln EXT DAILY [facility] Stop: 05/26/19 08:59 Last Admin: 04/27/19 09:09 Dose: 1 appln Documented by: Cholestyramine Resin (Questran) 4 gm PO BID PRN PRN Reason: Constipation Stop: 05/25/19 16:00 Diazepam (Valium) 2 mg PO Q8H PRN PRN Reason: muscle spasms Stop: 05/26/19 17:55 Last Admin: 04/27/19 09:04 Dose: 2 mg Documented by: Docusate Sodium (Colace) 100 mg PO BID [facility] Stop: 05/25/19 20:59 Last Admin: 04/27/19 09:05 Dose: 100 mg Documented by: Duloxetine HCl (Cymbalta) 60 mg PO DAILY [facility] Stop: 05/26/19 08:59 Last Admin: 04/27/19 09:05 Dose: 60 mg Documented by: Ferrous Gluconate (Ferrous Gluconate) 324 mg PO BIDM [facility] Stop: 05/25/19 16:59 Last Admin: 04/27/19 16:20 Dose: 324 mg Documented by: Furosemide (Lasix) 20 mg PO DAILY [facility] Stop: 05/26/19 08:59 Last Admin: 04/27/19 09:03 Dose: 20 mg Documented by: Gabapentin (Neurontin) 600 mg PO QID [facility]; Protocol Stop: 05/25/19 16:59 Last Admin: 04/27/19 16:20 Dose: 600 mg Documented by: Hydromorphone HCl (Dilaudid) 0.5 mg IV Q4H PRN PRN Reason: Pain Stop: 05/09/19 16:00 Last Admin: 04/27/19 01:51 Dose: 0.5 mg Documented by: Lactobacillus Acidophilus (Floranex) 4 tab PO DAILY [facility] Stop: 05/26/19 08:59 Last Admin: 04/27/19 09:05 Dose: 4 tab Documented by: Lubiprostone (Amitiza) 24 mcg PO BID [facility] Stop: 05/25/19 20:59 Last Admin: 04/27/19 09:05 Dose: 24 mcg Documented by: Magnesium Hydroxide (Milk Of Magnesia) 30 ml PO Q6H PRN PRN Reason: Constipation Stop: 05/25/19 16:00 Metoclopramide HCl (Reglan) 10 mg IV Q6H PRN PRN Reason: Nausea And Vomiting Stop: 05/25/19 16:00 Metoprolol Tartrate (Lopressor) 12.5 mg PO BID [facility] Stop: 05/25/19 20:59 Last Admin: 04/27/19 09:04 Dose: 12.5 mg Documented by: Multivitamins (Multivitamin Tab) 1 tab PO DAILY [facility] Stop: 05/26/19 08:59 Last Admin: 04/27/19 09:04 Dose: 1 tab Documented by: Multivitamins/Minerals (Caltrate Plus) 1 tab PO TID [facility]; Protocol Stop: 05/26/19 08:59 Last Admin: 04/27/19 13:49 Dose: 1 tab Documented by: Naloxone HCl (Narcan) 0.1 mg IV Q5M PRN PRN Reason: Oversedation/Resp Depression Stop: 05/25/19 16:00 Nystatin (Mycostatin) 1 appln EXT BID [facility] Stop: 05/25/19 20:59 Last Admin: 04/27/19 09:10 Dose: 1 appln Documented by: Ondansetron HCl (Zofran) 4 mg IV Q6H PRN PRN Reason: Nausea And Vomiting Stop: 05/25/19 16:00 Oxycodone HCl (Roxicodone Immediate Rel) 5 - 10 mg PO Q6H PRN PRN Reason: Pain Stop: 05/09/19 16:00 Last Admin: 04/27/19 11:37 Dose: 10 mg Documented by: Petrolatum (Butt Paste) 1 appln TOP BID [facility] Stop: 05/25/19 20:59 Last Admin: 04/27/19 09:10 Dose: 1 appln Documented by: Pravastatin Sodium (Pravachol) 20 mg PO DAILY [facility] Stop: 05/26/19 08:59 Last Admin: 04/27/19 09:04 Dose: 20 mg Documented by: Sennosides (Senokot) 17.2 mg PO HS [facility] Stop: 05/25/19 20:59 Last Admin: 04/26/19 20:28 Dose: 17.2 mg Documented by: Sodium Biphosphate/Sodium Phosphate (Fleet Enema) 132 ml [place] HS PRN PRN Reason: Constipation Stop: 05/25/19 16:00
[2019-04-27] MEDS: SENNA 8.6 MG TAB PO SCH (21:54)
[2019-04-28] MEDS: diazePAM 2 MG TABLET PO PRN (00:07)
[2019-04-28] MEDS: OXYCODONE HCL IR 5 MG TAB (IMMEDIATE RELEASE) PO PRN ×3 (02:07→16:28)
[2019-04-28 06:55] LABS: INR 2.1 (0.9-1.1); Prothrombin Time 20.6 Seconds (9.0-12.0)
--- NOTE | 2019-04-28 08:27 | Progress Note ---
DATE: 04/28/2019 SUBJECTIVE: A 68-year-old gentleman T8 paraplegic postop day 3 from right above-knee amputation for chronic infection. He is doing well. No new complaints today. OBJECTIVE: VITAL SIGNS: Temperature 37.1. Vital signs stable. GENERAL: Physical examination shows a pleasant elderly male. He is lying in bed, looks pretty comfortable. EXTREMITIES: Examination of the right leg reveals the dressing to be clean, dry and intact. No signs of problems. ASSESSMENT: A 68-year-old gentleman T8 paraplegic postop day 3 from right above-knee amputation for infection. He has got some terrible decubiti ulcer which needs to be addressed before discharge. PLAN: 1. DVT prophylaxis including thigh-high TEDs, SCDs, and back on his Coumadin. His INR this morning is 2.1. He should be back on just a standard dose. 2. PT/OT. Transfers. 3. Medical management as per the medicine service. 4. Wound care. Wound care nurse has been consulted. Once these have been addressed, he can be discharged. 5. Discharge to [place] after wound care consulted.
[2019-04-28] MEDS: PRAVASTATIN SOD 20 MG TAB PO SCH (09:00)
[2019-04-28] MEDS: METOPROLOL TARTRATE 25 MG TAB PO SCH (09:00)
[2019-04-28] MEDS: AMLODIPINE BESYLATE 5 MG TAB PO SCH (09:01)
[2019-04-28] MEDS: DOCUSATE SODIUM 100 MG CAP PO SCH (09:01)
[2019-04-28] MEDS: CALCIUM 600MG + VIT D 400 IU TAB PO SCH ×2 (09:01→14:15)
[2019-04-28] MEDS: DULOXETINE HCL 60 MG CAP PO SCH (09:01)
[2019-04-28] MEDS: MENTHOL-ZINC OXIDE 360 APPLN/120 GM TUBE EXT SCH (09:02)
[2019-04-28] MEDS: FERROUS GLUCONATE 324 MG TAB PO SCH (09:02)
[2019-04-28] MEDS: FUROSEMIDE 20 MG TAB PO SCH (09:02)
[2019-04-28] MEDS: LUBIPROSTONE 8 MCG CAP PO SCH (09:02)
[2019-04-28] MEDS: MULTIVITAMIN TAB PO SCH (09:02)
[2019-04-28] MEDS: ASCORBIC ACID 500 MG TAB PO SCH (09:03)
[2019-04-28] MEDS: LACTOBACILLUS ACIDOPHILUS (FLORANEX) TAB PO SCH (09:03)
[2019-04-28] MEDS: GABAPENTIN 300 MG CAP PO SCH ×3 (09:04→16:31)
[2019-04-28] MEDS: BUTT PASTE (ZINC OXIDE 16%) 171 APPLN/57 GM JAR TOP SCH (09:04)
[2019-04-28] MEDS: BACLOFEN 20 MG TAB PO SCH ×2 (09:04→14:15)
[2019-04-28] MEDS: NYSTATIN POWDER 15GM BTL EXT SCH (09:05)
--- NOTE | 2019-04-28 14:26 | Hospitalist Progress Note ---
Date of Service April 28, 2019 Assessment & Plan (1) Above knee amputation of right lower extremity: - status post right AKA by Dr. Lopez -Amputation performed secondary to chronic wounds and osteomyelitis of the right lower extremity -Pain is controlled with oxycodone and pain in his upper shoulder area is maintained with the Valium. -He continues on Coumadin for chronic prophylaxis of DVT, although, has never actually had a DVT per his report. Cont with coumadin and no Lovenox bridge. (2) Decubitus ulcer: severe on buttocks. Wound care is consulted with discharge recommendations and follow-up. (3) HTN (hypertension): -BP controlled, continue current management (4) Dyslipidemia: -Continue statin (5) DVT prophylaxis: warfarin Full Code Dispo-cont hospitalization. Thank you for this consultation. You can reach a member of the [facility] Team 11/06 via pager @ [phone]. Alexandria Kim, [facility] Subjective doing well today planned for dc pain controlled tolerating PO at bedside all questions answered. Review of Systems Review of Systems: All systems reviewed & are unremarkable except as noted in HPI & below Physical Exam Physical Exam: CONSTITUTIONAL: WNWD, vitals as above, generally well- appearing EYES: normal conjunctivae, no scleral icterus ENT: MMM RESPIRATORY: clear to auscultation bilaterally, no crackles, rales or wheezes, normal respiratory effort CARDIOVASCULAR: regular rate and rhythm, S1 and 2 heard without murmurs, gallops or rubs, no JVD, no peripheral edema GASTROINTESTINAL: normal bowel sounds, soft, nontender, nondistended MUSCULOSKELETAL: strength intact throughout, s/p R AKA with surgical dressing in place, head is normocephalic and atraumatic SKIN: warm and dry, buttock wounds, severe-not visualized on my exam NEUROLOGIC: no facial palsy, no dysarthria. CN 2-12 grossly intact, no gross focal deficits. PSYCHIATRIC: alert cooperative and oriented to person, place and time. Results & Data Vital Signs (Past 12 Hours) Vital Signs Temp Pulse Resp BP Pulse Ox 04/28/19 08:00 36.9 C 62 12 144/76 H 96 Medications Administered Current Inpatient Medications Acetaminophen (Tylenol) 650 mg PO Q6H PRN PRN Reason: Pain Stop: 05/25/19 16:00 Al Hydrox/Mg Hydrox/Simethicone (Maalox) 15 ml PO Q4H PRN PRN Reason: Heartburn Stop: 05/25/19 16:00 Amlodipine Besylate (Norvasc) 2.5 mg PO DAILY [facility] Stop: 05/26/19 08:59 Last Admin: 04/28/19 09:01 Dose: 2.5 mg Documented by: Ascorbic Acid (Vitamin C) 500 mg PO DAILY [facility] Stop: 05/26/19 08:59 Last Admin: 04/28/19 09:03 Dose: 500 mg Documented by: Baclofen (Lioresal) 20 mg PO TID [facility] Stop: 05/25/19 20:59 Last Admin: 04/28/19 14:15 Dose: 20 mg Documented by: Bisacodyl (Dulcolax) 10 mg GA DAILY PRN PRN Reason: Constipation Stop: 05/25/19 16:00 Last Admin: 04/26/19 16:37 Dose: 10 mg Documented by: Calamine/Phenol (Calmoseptine) 1 appln EXT DAILY [facility] Stop: 05/26/19 08:59 Last Admin: 04/28/19 09:02 Dose: 1 appln Documented by: Cholestyramine Resin (Questran) 4 gm PO BID PRN PRN Reason: Constipation Stop: 05/25/19 16:00 Diazepam (Valium) 2 mg PO Q8H PRN PRN Reason: muscle spasms Stop: 05/26/19 17:55 Last Admin: 04/28/19 00:07 Dose: 2 mg Documented by: Docusate Sodium (Colace) 100 mg PO BID [facility] Stop: 05/25/19 20:59 Last Admin: 04/28/19 09:01 Dose: 100 mg Documented by: Duloxetine HCl (Cymbalta) 60 mg PO DAILY [facility] Stop: 05/26/19 08:59 Last Admin: 04/28/19 09:01 Dose: 60 mg Documented by: Ferrous Gluconate (Ferrous Gluconate) 324 mg PO BIDM [facility] Stop: 05/25/19 16:59 Last Admin: 04/28/19 09:02 Dose: 324 mg Documented by: Furosemide (Lasix) 20 mg PO DAILY [facility] Stop: 05/26/19 08:59 Last Admin: 04/28/19 09:02 Dose: 20 mg Documented by: Gabapentin (Neurontin) 600 mg PO QID [facility]; Protocol Stop: 05/25/19 16:59 Last Admin: 04/28/19 14:16 Dose: 600 mg Documented by: Hydromorphone HCl (Dilaudid) 0.5 mg IV Q4H PRN PRN Reason: Pain Stop: 05/09/19 16:00 Last Admin: 04/27/19 19:07 Dose: 0.5 mg Documented by: Lactobacillus Acidophilus (Floranex) 4 tab PO DAILY [facility] Stop: 05/26/19 08:59 Last Admin: 04/28/19 09:03 Dose: 4 tab Documented by: Lubiprostone (Amitiza) 24 mcg PO BID [facility] Stop: 05/25/19 20:59 Last Admin: 04/28/19 09:02 Dose: 24 mcg Documented by: Magnesium Hydroxide (Milk Of Magnesia) 30 ml PO Q6H PRN PRN Reason: Constipation Stop: 05/25/19 16:00 Metoclopramide HCl (Reglan) 10 mg IV Q6H PRN PRN Reason: Nausea And Vomiting Stop: 05/25/19 16:00 Metoprolol Tartrate (Lopressor) 12.5 mg PO BID [facility] Stop: 05/25/19 20:59 Last Admin: 04/28/19 09:00 Dose: 12.5 mg Documented by: Multivitamins (Multivitamin Tab) 1 tab PO DAILY [facility] Stop: 05/26/19 08:59 Last Admin: 04/28/19 09:02 Dose: 1 tab Documented by: Multivitamins/Minerals (Caltrate Plus) 1 tab PO TID [facility]; Protocol Stop: 05/26/19 08:59 Last Admin: 04/28/19 14:15 Dose: 1 tab Documented by: Naloxone HCl (Narcan) 0.1 mg IV Q5M PRN PRN Reason: Oversedation/Resp Depression Stop: 05/25/19 16:00 Nystatin (Mycostatin) 1 appln EXT BID [facility] Stop: 05/25/19 20:59 Last Admin: 04/28/19 09:05 Dose: 1 appln Documented by: Ondansetron HCl (Zofran) 4 mg IV Q6H PRN PRN Reason: Nausea And Vomiting Stop: 05/25/19 16:00 Oxycodone HCl (Roxicodone Immediate Rel) 5 - 10 mg PO Q6H PRN PRN Reason: Pain Stop: 05/09/19 16:00 Last Admin: 04/28/19 08:59 Dose: 10 mg Documented by: Petrolatum (Butt Paste) 1 appln TOP BID [facility] Stop: 05/25/19 20:59 Last Admin: 04/28/19 09:04 Dose: 1 appln Documented by: Pravastatin Sodium (Pravachol) 20 mg PO DAILY [facility] Stop: 05/26/19 08:59 Last Admin: 04/28/19 09:00 Dose: 20 mg Documented by: Sennosides (Senokot) 17.2 mg PO HS [facility] Stop: 05/25/19 20:59 Last Admin: 04/27/19 21:54 Dose: 17.2 mg Documented by: Sodium Biphosphate/Sodium Phosphate (Fleet Enema) 132 ml GA HS PRN PRN Reason: Constipation Stop: 05/25/19 16:00 Warfarin Sodium (Coumadin) 2 mg PO DAILY@1600 [facility] Stop: 05/28/19 15:59
[2019-04-28] MEDS ORDERED: WARFARIN SOD 2 MG TAB PO SCH (16:00)
--- NOTE | 2019-05-02 13:51 | Discharge Summary ---
ADMITTING PHYSICIAN AND SURGEON: Cr Lopez MD ADMITTING DIAGNOSES: Right chronic lower extremity nonhealing wounds with underlying osteomyelitis, distal femur and tibia. SURGERY PERFORMED: Right above-knee amputation. SECONDARY DIAGNOSES: T8 paraplegia, lower extremity paralysis, chronic Coumadin use for deep venous thrombosis prophylaxis, chronic obstructive pulmonary disease, coronary artery disease, hypertension. CONSULTS: 1. Dr. Clark, postoperative medical management. 2. Wound care for decubitus ulcers. HISTORY AND PHYSICAL EXAMINATION: Well documented in the patient's chart. HOSPITAL COURSE: The patient was admitted on 04/25/2019, underwent above-knee amputation, tolerated the procedure well. There were no complications. He was transferred to the PACU postoperatively and later to the orthopedic floor for further care. He was given Ancef for antibiotic prophylaxis, SHANON stockings, SCDs and Coumadin for DVT prophylaxis. INR was monitored daily, Coumadin dosed accordingly. Hemoglobin, hematocrit and vital signs were monitored during his hospital stay and remained stable, did not require any blood transfusions. There were no complications during his hospital stay. On postoperative day 3, he was tolerating a regular diet. He was not having any pain. On postoperative day 3, then [facility], given printed discharge instructions including new prescription for an iron supplement. Continue his home medications including Coumadin with the exception of Lovenox which was discontinued, Cipro and Augmentin which were discontinued. He will follow up approximately 2 weeks postoperatively or sooner if there are any problems or concerns. He is also instructed to keep his dressing clean, dry and in place until his followup appointment in about 2 weeks.
== END 2019-04-28 18:07 | DRG 475 ==
LOC: ASU 10:17 → 3N 14:48
DX: M86.661 Other chronic osteomyelitis, right tibia and fibula; D62 Acute posthemorrhagic anemia; I25.10 Atherosclerotic heart disease of native coronary artery without angina pectoris; G82.20 Paraplegia, unspecified; Z79.899 Other long term (current) drug therapy; Z79.01 Long term (current) use of anticoagulants; I10 Essential (primary) hypertension; L89.319 Pressure ulcer of right buttock, unspecified stage; M86.651 Other chronic osteomyelitis, right thigh; J44.9 Chronic obstructive pulmonary disease, unspecified